=== PATIENT | female | born 1975 | race Caucasian/White ===

== ENCOUNTER → 2018-02-24 14:20 | Outpatient (CLI) | payer OTHER, SELFPAY ==
--- NOTE | 2018-02-24 | DI.MG.S_ITS ---
BILATERAL DIGITAL DIAGNOSTIC MAMMOGRAM 3D/2D: 02/24/2018 CLINICAL: Baseline exam. Left breast nodule and discomfort. No prior exams were available for comparison. The tissue of both breasts is heterogeneously dense. This may lower the sensitivity of mammography. No significant masses, calcifications, or other findings are seen in either breast. IMPRESSION: INCOMPLETE: NEEDS ADDITIONAL IMAGING EVALUATION There is no mammographic abnormality seen in the left breast to correspond with the palpable abnormality and pain, however, ultrasound is recommended. This exam was interpreted at Station ID: [id number]. NOTE: For mammograms, a report in lay terms will be sent to the patient. Approximately 15% of breast malignancies will not be visualized mammographically. In the management of a palpable breast mass, a negative mammogram must not discourage biopsy of a clinically suspicious lesion. Electronically Signed By: Sabra baca/guillermo:02/25/2018 12:07:46 Entry: martha - 02/25/2018 12:07:46 copy to: LEVI ALEJANDRO letter sent: Need Ultrasound ACR BI-RADS Category 0: Incomplete [id number]
== END ==
PROVIDERS: Visit Provider Nurse Practitioner Family
DX: R92.8 Other abnormal and inconclusive findings on diagnostic imaging of breast (principal); N64.4 Mastodynia; N63.20 Unspecified lump in the left breast, unspecified quadrant
CPT/HCPCS: 77066; G0279

== ENCOUNTER → 2018-03-10 10:38 | Outpatient (CLI) | payer OTHER, SELFPAY ==
--- NOTE | 2018-03-10 | DI.US.S_ITS ---
ULTRASOUND OF LEFT BREAST: 03/10/2018 CLINICAL: Palpable left breast lump by physician. Occasional left breast pain. Comparison is made to exam dated: 02/24/2018 [facility]. Real-time and Doppler ultrasound of the left breast were performed. [place] scale images of the real-time examination were reviewed. Targeted ultrasound was performed in the region of the patient's reported focal pain and palpable abnormality in the outer left breast. No underlying breast mass or abnormality is identified. IMPRESSION: NEGATIVE 1) Negative ultrasound evaluation of the area of the patient's reported focal pain and palpable abnormality in the left breast. Recommend clinical follow-up for further evaluation and management of the patient's reported symptoms. The patient is advised to monitor her breasts and to return for re-evaluation should anything grow or change. 2) There is no sonographic evidence of malignancy. Return to annual screening mammography is also recommended, next due in February 2019. This exam was interpreted at Station ID: [id number]. Electronically Signed By: Alfredo Honeycutt M.D. ecl/:03/10/2018 11:39:51 copy to: LEVI ALEJANDRO letter sent: Clinical Evaluation Ultrasound BI-RADS: 1 Negative
== END ==
PROVIDERS: PCP Family Medicine; Visit Provider Nurse Practitioner Family
DX: R92.8 Other abnormal and inconclusive findings on diagnostic imaging of breast (principal); N63.20 Unspecified lump in the left breast, unspecified quadrant
CPT/HCPCS: 76642

== ENCOUNTER 2019-04-30 14:44 | Emergency (ER) | payer OTHER, SELFPAY ==
[2019-04-30 14:58] VITALS: BP 136/88; PULSE 65; RESP 16; TEMP 36.7; O2SAT 100; BMI 21.9
[2019-04-30 15:12] LABS: Bacteria Urine None Seen
[2019-04-30 15:13] LABS: Appearance Urine UA CLEAR; Bilirubin Urine UA NEGATIVE (NEGATIVE); Color Urine UA YELLOW; Glucose Urine UA NEGATIVE (Negative); Ketones Urine UA NEGATIVE (NEGATIVE); Leukocyte Esterase Urine UA NEGATIVE (NEGATIVE); Nitrite Urine UA NEGATIVE (Negative); Occult Blood Urine UA 2+ (Negative); Protein Urine UA NEGATIVE (Negative); Specific Gravity Urine UA <=1.005 (1.000-1.035); Urobilinogen Urine UA 0.2 E.U./dL (0.2)
[2019-04-30 15:18] LABS: Pregnancy Test Urine Negative (Negative); pH Urine UA 6.5 (4.5-8.0)
[2019-04-30 15:27] LABS: RBC Urine 0-1/HPF (0-5/HPF); Squamous Epithelial Cell Urine 0-1 /HPF (0-5/HPF); WBC Urine 0-1/HPF (0-5/HPF)
[2019-04-30 15:28] LABS: Culture Indicated Urine Cult Not Indicated
[2019-04-30 16:15] LABS: Add Manual Diff / Slide Review NO; Basophils Absolute Auto 0 /uL (0-100); Basophils Percent Auto 0.6 % (0-2); Eosinophils Absolute Auto 0 /uL (0-450); Eosinophils Percent Auto 0.6 % (2-4); Hemoglobin 12.4 g/dL (12.0-16.0); Lymphocytes Absolute Auto 1500 /uL (1100-4500); Lymphocytes Percent Auto 26.2 % (25-40); Mean Corpuscular HGB Conc 33.5 % (30-36); Mean Corpuscular Hemoglobin 30.8 PG (26-34); Mean Corpuscular Volume 91.9 fL (80-100); Monocytes Absolute Auto 500 /uL (0-900); Monocytes Percent Auto 8.2 % (3-14); Neutrophils Absolute Auto 3800 /uL (1500-7000); Neutrophils Percent Auto 64.4 % (50-75); Platelet Count 235 X10^3/uL (150-400); Red Blood Cell Count 4.03 X10^6/uL (4.0-5.2); Red Cell Distribution Width 13.2 % (11.6-14.8); White Blood Cell Count 5.9 X10^3/uL (4.5-11.0)
--- NOTE | 2019-04-30 16:19 | DI.US.S_ITS ---
PROCEDURE: US PELVIC COMPLETE INDICATIONS: RIGHT LOWER QUADRANT PAIN TECHNIQUE: Real-time scanning was performed of the pelvic organs, with image documentation. Additional endovaginal scanning was necessary due to incomplete visualization of the adnexal and endometrial structures by transabdominal scanning. COMPARISON: None. FINDINGS: Transabdominal scanning: Limited scanning through the kidneys shows no hydronephrosis. There is a 1.2 x 1.0 x 1.0 cm mildly lobulated cystic structure of the left kidney with a single thick septation and layering calcium. No pathologic free abdominal or pelvic fluid. Endovaginal scanning: Uterus: Uterus is normal in size at the 12.0 x 7.8 x 5.9 cm. The endometrium measures 12 mm in combined thickness. Ovaries: Right ovary measures 3.2 x 1.7 x 1.7 cm. There is a 1.9 x 1.8 x 1.3 cm anechoic simple right ovarian cyst. Left ovary is not visualized due to overlying bowel gas. IMPRESSION: 1.9 cm simple cyst of the right ovary. 1.2 cm complicated cyst of the left kidney. Consider nonurgent MRI of the kidneys to confirm benignity. Left ovary not visualized. Dictated by: Sarthak Gresham M.D. on 04/30/2019 at 16:21 Approved by: Sarthak Gresham M.D. on 04/30/2019 at 16:28
[2019-04-30 16:32] LABS: Alanine Aminotransferase 17 IU/L (9-52); Albumin 4.9 g/dL (3.5-5.0); Albumin Globulin Ratio 1.6 (1.0-2.8); Alkaline Phosphatase 52 U/L (38-126); Aspartate Aminotransferase 29 IU/L (14-36); Bilirubin Total 1.6 mg/dL (0.2-1.3); Blood Urea Nitrogen 11 mg/dL (7-17); Calcium 9.5 mg/dL (8.4-10.2); Carbon Dioxide 28 mmol/L (22-32); Chloride 101 mmol/L (98-107); Estimated Glomerular Filt Rate > 60.0 mL/min (>60); Glucose 90 mg/dL (70-100); HEMOLYSIS < 15 (0-50); Lipase 76 U/L (23-300); Potassium 4.1 mmol/L (3.4-5.1); Sodium 139 mmol/L (137-145); Total Protein 7.9 g/dL (6.3-8.2)
[2019-04-30 17:37] VITALS: BP 132/74; PULSE 65; RESP 16; O2SAT 100
--- NOTE | 2019-04-30 18:44 | ED.ABDPAIN ---
HPI - Abdominal Pain [facility] Last Filed: 04/30/19 18:52> General Chief Complaint: Abdominal Pain Stated Complaint: possible an ovary cyst bursted right side Time Seen by Provider: 04/30/19 16:01 Source: patient Mode of arrival: Ambulatory Limitations: no limitations History of Present Illness HPI narrative: The patient is a 43-year-old female nonsmoker with history of ovarian cyst who presents with a chief complaint of right lower quadrant pain that has been increasing and constant for the past few days. She states she is mid cycle and has history of an ovarian cyst, she is concerned about a possible other ovarian cyst. She took Motrin this morning. She denies any fevers nausea vomiting diarrhea. She denies any dysuria urgency or frequency. She denies any vaginal discharge. She denies any concern or risk for sexually transmitted infections. She denies possibility of at this point time. Related Data Previous Rx's Medication Instructions Recorded oseltamivir [Tamiflu] 75 mg PO BID #10 cap 09/17/16 valacyclovir [Valtrex] 0 PO BID #12 tab 11/16/16 Review of Systems <[facility] Last Filed: 04/30/19 18:52> Review of Systems Narrative: GENERAL: Denies chills, fatigue, malaise, fever, sweats. HEENT: Denies sinus pain, ear pain, sore throat, difficulty swallowing, dizziness. RESPIRATORY: Denies dyspnea, cough, wheezing, hemoptysis, sputum. CARDIOVASCULAR: Denies chest pain, palpitations, orthopnea, edema, GASTROINTESTINAL see HPI : Denies dysuria, frequency, incontinence, hematuria, urinary retention. MUSCULOSKELETAL: denies weakness, joint pain, or bony pain SKIN: Denies rash, skin lesions, or other NEUROLOGIC: Denies weakness, headache, numbness, change in speech, confusion, seizures, incoordination. PSYCHIATRIC: No concerning psychosocial issues. 12 point review of systems is negative except for those stated above Exam <ASHLEY Wisdom - Last Filed: 04/30/19 18:52> Narrative Exam Narrative: GENERAL: This is a well-nourished, well-developed patient, in no acute distress HEAD: Atraumatic. Normocephalic. No temporal or scalp tenderness. EYES: Pupils equal round and reactive. Extraocular motions intact. No scleral icterus. No injection or drainage. ENT: Nose without bleeding, purulent drainage or septal hematoma. Throat without erythema, tonsillar hypertrophy or exudate. Uvula midline. Airway patent. NECK: Trachea midline. No JVD or lymphadenopathy. Supple, nontender, no meningeal signs. CARDIOVASCULAR: Regular rate and rhythm RESPIRATORY: Clear to auscultation. Breath sounds equal bilaterally. No wheezes, rales, or rhonchi. No cough. No increased respiratory effort. No accessory muscle use. GASTROINTESTINAL: Abdomen soft, nondistended. No hepato-splenomegaly, or palpable masses. No guarding. Active bowel sounds all 4 quadrants. Diffuse tenderness right lower quadrant EXTREMITIES: No clubbing, cyanosis, or edema. No joint tenderness, effusion, or edema noted. BACK: Nontender without deformity or crepitance. No flank tenderness. NEURO: AOx3. SKIN: No rash or erythema. Psych: Patient denies suicidal homicidal ideations. Does states that she drinks 2-3 glasses of wine per night. States she is safe at home and has no thoughts of hurting herself or anybody else, but will seek help if necessary. Initial Vital Signs Initial Vital Signs: Vital Signs Temperature 98.1 F 04/30/19 14:58 Pulse Rate 65 04/30/19 14:58 Respiratory Rate 16 04/30/19 14:58 Blood Pressure 136/88 04/30/19 14:58 Pulse Oximetry 100 04/30/19 14:58 <Emilie Cerrato MD - Last Filed: 04/30/19 19:25> Initial Vital Signs Initial Vital Signs: Vital Signs Temperature 98.1 F 04/30/19 14:58 Pulse Rate 65 04/30/19 14:58 Respiratory Rate 16 04/30/19 14:58 Blood Pressure 136/88 04/30/19 14:58 Pulse Oximetry 100 04/30/19 14:58 Course <BRENTON Wisdom - Last Filed: 04/30/19 18:52> Orders Ordered: ED Orders 04/30/19 15:05 Test Urine Stat Urinalysis and Microscopic Stat 04/30/19 16:08 Complete Blood Count AUTO DIFF Stat Comprehensive Metabolic Panel Stat Lipase Stat Prothrombin Time INR Stat 04/30/19 16:19 US pelvic complete Stat Vital Signs Vital signs: Vital Signs - 8 hr 10/20/19 14:58 04/30/19 17:37 Temperature 98.1 F Pulse Rate 65 65 Respiratory Rate 16 16 Blood Pressure 136/88 Blood Pressure [Right Arm] 132/74 Pulse Oximetry 100 100 <Emilie Cerrato MD - Last Filed: 04/30/19 19:25> Orders Ordered: ED Orders 04/30/19 15:05 Test Urine Stat Urinalysis and Microscopic Stat 04/30/19 16:08 Complete Blood Count AUTO DIFF Stat Comprehensive Metabolic Panel Stat Lipase Stat Prothrombin Time INR Stat 04/30/19 16:19 US pelvic complete Stat Vital Signs Vital signs: Vital Signs - 8 hr 04/30/19 14:58 04/30/19 17:37 Temperature 98.1 F Pulse Rate 65 65 Respiratory Rate 16 16 Blood Pressure 136/88 Blood Pressure [Right Arm] 132/74 Pulse Oximetry 100 100 MDM - Abdominal Pain <ASHLEY Wisdom - Last Filed: 04/30/19 18:52> Lab Data Result diagrams: 04/30/19 16:08 04/30/19 16:08 Labs: Lab Results 04/30/19 04/30/19 04/30/19 Range/Units 15:05 15:05 16:08 WBC 5.9 (4.5-11.0) X10^3/uL RBC 4.03 (4.0-5.2) X10^6/uL Hgb 12.4 (12.0-16.0) g/dL Hct 37.0 (36-46) % MCV 91.9 (80-100) fL MCH 30.8 (26-34) PG MCHC 33.5 (30-36) % RDW 13.2 (11.6-14.8) % Plt Count 235 (150-400) X10^3/uL Neut % (Auto) 64.4 (50-75) % Lymph % (Auto) 26.2 (25-40) % [place] % (Auto) 8.2 (3-14) % Eos % (Auto) 0.6 L (2-4) % Baso % (Auto) 0.6 (0-2) % Neut # (Auto) 3800 (7730-6915) /uL Lymph # (Auto) 1500 (4201-9742) /uL [place] # (Auto) 500 (0-900) /uL Eos # (Auto) 0 (0-450) /uL Baso # (Auto) 0 (0-100) /uL PT (10.1-12.7) SECONDS INR (0.9-1.3) Sodium (137-145) mmol/L Potassium (3.4-5.1) mmol/L Chloride (98-107) mmol/L Carbon Dioxide (22-32) mmol/L BUN (7-17) mg/dL Creatinine (0.52-1.04) mg/dL Estimated GFR (>60) mL/min BUN/Creatinine Ratio (6-22) Glucose (70-100) mg/dL Calcium (8.4-10.2) mg/dL Total Bilirubin (0.2-1.3) mg/dL AST (14-36) IU/L ALT (9-52) IU/L Alkaline Phosphatase (38-126) U/L Total Protein (6.3-8.2) g/dL Albumin (3.5-5.0) g/dL Globulin (1.7-4.1) g/dL Albumin/Globulin Ratio (1.0-2.8) Lipase (23-300) U/L Urine Color Yellow Urine Appearance Clear Urine pH 6.5 (4.5-8.0) Ur Specific [place] <=1.005 (1.000-1.035) Urine Protein Negative (Negative) Urine Glucose (UA) Negative (Negative) g/dL Urine Ketones Negative (NEGATIVE) Urine Occult Blood 2+ H (Negative) Urine Nitrate Negative (Negative) Urine Bilirubin Negative (NEGATIVE) Urine Urobilinogen 0.2 (0.2) E.U./dL Ur Leukocyte Esterase Negative (NEGATIVE) Urine RBC 0-1/hpf (0-5/HPF) Urine WBC 0-1/hpf (0-5/HPF) Ur Squamous Epith Cells 0-1 /hpf (0-5/HPF) Urine Bacteria None seen (None) Ur Culture Indicated? Cult not indicated Urine Test Negative (Negative) 04/30/19 04/30/19 Range/Units 16:08 16:08 WBC (4.5-11.0) X10^3/uL RBC (4.0-5.2) X10^6/uL Hgb (12.0-16.0) g/dL Hct (36-46) % MCV (80-100) fL MCH (26-34) PG MCHC (30-36) % RDW (11.6-14.8) % Plt Count (150-400) X10^3/uL Neut % (Auto) (50-75) % Lymph % (Auto) (25-40) % [place] % (Auto) (3-14) % Eos % (Auto) (2-4) % Baso % (Auto) (0-2) % Neut # (Auto) (1068-4704) /uL Lymph # (Auto) (8290-0902) /uL [place] # (Auto) (0-900) /uL Eos # (Auto) (0-450) /uL Baso # (Auto) (0-100) /uL PT 12.0 (10.1-12.7) SECONDS INR 1.0 (0.9-1.3) Sodium 139 (137-145) mmol/L Potassium 4.1 (3.4-5.1) mmol/L Chloride 101 (98-107) mmol/L Carbon Dioxide 28 (22-32) mmol/L BUN 11 (7-17) mg/dL Creatinine 0.50 L (0.52-1.04) mg/dL Estimated GFR > 60.0 (>60) mL/min BUN/Creatinine Ratio 22.0 (6-22) Glucose 90 (70-100) mg/dL Calcium 9.5 (8.4-10.2) mg/dL Total Bilirubin 1.6 H (0.2-1.3) mg/dL AST 29 (14-36) IU/L ALT 17 (9-52) IU/L Alkaline Phosphatase 52 (38-126) U/L Total Protein 7.9 (6.3-8.2) g/dL Albumin 4.9 (3.5-5.0) g/dL Globulin 3.0 (1.7-4.1) g/dL Albumin/Globulin Ratio 1.6 (1.0-2.8) Lipase 76 (23-300) U/L Urine Color Urine Appearance Urine pH (4.5-8.0) Ur Specific [place] (1.000-1.035) Urine Protein (Negative) Urine Glucose (UA) (Negative) g/dL Urine Ketones (NEGATIVE) Urine Occult Blood (Negative) Urine Nitrate (Negative) Urine Bilirubin (NEGATIVE) Urine Urobilinogen (0.2) E.U./dL Ur Leukocyte Esterase (NEGATIVE) Urine RBC (0-5/HPF) Urine WBC (0-5/HPF) Ur Squamous Epith Cells (0-5/HPF) Urine Bacteria (None) Ur Culture Indicated? Urine Test (Negative) Imaging Data Pelvic ultrasound: Radiologist's impression: [address] [id number] Ultrasound Report Signed Patient: Anali Baires#: [id number] : 1975Acct:[id number] Age/Sex: 43 / FDate of Service: 04/30/19 Loc: ED Accession Number: [id number] Procedure: US pelvic complete Ordering Provider: Karina Velasquez [employer] PROCEDURE: US PELVIC COMPLETE INDICATIONS: RIGHT LOWER QUADRANT PAIN TECHNIQUE: Real-time scanning was performed of the pelvic organs, with image documentation. Additional endovaginal scanning was necessary due to incomplete visualization of the adnexal and endometrial structures by transabdominal scanning. COMPARISON: None. FINDINGS: Transabdominal scanning: Limited scanning through the kidneys shows no hydronephrosis. There is a 1.2 x 1.0 x 1.0 cm mildly lobulated cystic structure of the left kidney with a single thick septation and layering calcium. No pathologic free abdominal or pelvic fluid. Endovaginal scanning: Uterus: Uterus is normal in size at the 12.0 x 7.8 x 5.9 cm. The endometrium measures 12 mm in combined thickness. Ovaries: Right ovary measures 3.2 x 1.7 x 1.7 cm. There is a 1.9 x 1.8 x 1.3 cm anechoic simple right ovarian cyst. Left ovary is not visualized due to overlying bowel gas. IMPRESSION: 1.9 cm simple cyst of the right ovary. 1.2 cm complicated cyst of the left kidney. Consider nonurgent MRI of the kidneys to confirm benignity. Left ovary not visualized. Dictated by: Sarthak Gresham M.D. on 04/30/2019 at 16:21 Approved by: Sarthak Gresham M.D. on 04/30/2019 at 16:28 [facility] Narrative Medical decision making narrative: The patient is a 43-year-old female who presents with a chief complaint of right lower quadrant pain with history of ovarian cyst. She does not have an acute abdomen on exam. Urinalysis was taken to evaluate for UTI, and laboratory evaluation showed no leukocytosis or is red blood cells or white blood cells. Her lab work came back grossly benign, with no leukocytosis. An ultrasound was taken, evaluating for possible ovarian cyst. This came back 01.9 cm ovarian cyst on her right side, which correlates with her pain. Of note the patient was also found to have a 1.2 cm complex cyst of her left kidney. I discussed at length the importance of following up regarding this as she might need further evaluation. Discussed at length coming back to the emergency department for any acute concerns such as sudden severe pain, inability keep down fluids etc. I encouraged PCP follow-up regarding both her ovarian cyst and complex kidney cyst. Encourage conservative measures such as warm packs [id number] medications as needed and able for right lower quadrant pain. She does not have an acute abdomen, no leukocytosis, no systemic symptoms so I did not get a CT of her abdomen at this point time. Discussed coming back to emergency department for any acute concerns. Patient has no questions or concerns upon discharge, states understanding of return precautions as well as follow-up care. <Emilie Cerrato MD - Last Filed: 04/30/19 19:25> Lab Data Labs: Lab Results 04/30/19 04/30/19 04/30/19 Range/Units 15:05 15:05 16:08 WBC 5.9 (4.5-11.0) X10^3/uL RBC 4.03 (4.0-5.2) X10^6/uL Hgb 12.4 (12.0-16.0) g/dL Hct 37.0 (36-46) % MCV 91.9 (80-100) fL MCH 30.8 (26-34) PG MCHC 33.5 (30-36) % RDW 13.2 (11.6-14.8) % Plt Count 235 (150-400) X10^3/uL Neut % (Auto) 64.4 (50-75) % Lymph % (Auto) 26.2 (25-40) % [place] % (Auto) 8.2 (3-14) % Eos % (Auto) 0.6 L (2-4) % Baso % (Auto) 0.6 (0-2) % Neut # (Auto) 3800 (9642-5796) /uL Lymph # (Auto) 1500 (7663-8392) /uL [place] # (Auto) 500 (0-900) /uL Eos # (Auto) 0 (0-450) /uL Baso # (Auto) 0 (0-100) /uL PT (10.1-12.7) SECONDS INR (0.9-1.3) Sodium (137-145) mmol/L Potassium (3.4-5.1) mmol/L Chloride (98-107) mmol/L Carbon Dioxide (22-32) mmol/L BUN (7-17) mg/dL Creatinine (0.52-1.04) mg/dL Estimated GFR (>60) mL/min BUN/Creatinine Ratio (6-22) Glucose (70-100) mg/dL Calcium (8.4-10.2) mg/dL Total Bilirubin (0.2-1.3) mg/dL AST (14-36) IU/L ALT (9-52) IU/L Alkaline Phosphatase (38-126) U/L Total Protein (6.3-8.2) g/dL Albumin (3.5-5.0) g/dL Globulin (1.7-4.1) g/dL Albumin/Globulin Ratio (1.0-2.8) Lipase (23-300) U/L Urine Color Yellow Urine Appearance Clear Urine pH 6.5 (4.5-8.0) Ur Specific [place] <=1.005 (1.000-1.035) Urine Protein Negative (Negative) Urine Glucose (UA) Negative (Negative) g/dL Urine Ketones Negative (NEGATIVE) Urine Occult Blood 2+ H (Negative) Urine Nitrate Negative (Negative) Urine Bilirubin Negative (NEGATIVE) Urine Urobilinogen 0.2 (0.2) E.U./dL Ur Leukocyte Esterase Negative (NEGATIVE) Urine RBC 0-1/hpf (0-5/HPF) Urine WBC 0-1/hpf (0-5/HPF) Ur Squamous Epith Cells 0-1 /hpf (0-5/HPF) Urine Bacteria None seen (None) Ur Culture Indicated? Cult not indicated Urine Test Negative (Negative) 10/20/19 10/20/19 Range/Units 16:08 16:08 WBC (4.5-11.0) X10^3/uL RBC (4.0-5.2) X10^6/uL Hgb (12.0-16.0) g/dL Hct (36-46) % MCV (80-100) fL MCH (26-34) PG MCHC (30-36) % RDW (11.6-14.8) % Plt Count (150-400) X10^3/uL Neut % (Auto) (50-75) % Lymph % (Auto) (25-40) % [place] % (Auto) (3-14) % Eos % (Auto) (2-4) % Baso % (Auto) (0-2) % Neut # (Auto) (1238-9314) /uL Lymph # (Auto) (1427-5813) /uL [place] # (Auto) (0-900) /uL Eos # (Auto) (0-450) /uL Baso # (Auto) (0-100) /uL PT 12.0 (10.1-12.7) SECONDS INR 1.0 (0.9-1.3) Sodium 139 (137-145) mmol/L Potassium 4.1 (3.4-5.1) mmol/L Chloride 101 (98-107) mmol/L Carbon Dioxide 28 (22-32) mmol/L BUN 11 (7-17) mg/dL Creatinine 0.50 L (0.52-1.04) mg/dL Estimated GFR > 60.0 (>60) mL/min BUN/Creatinine Ratio 22.0 (6-22) Glucose 90 (70-100) mg/dL Calcium 9.5 (8.4-10.2) mg/dL Total Bilirubin 1.6 H (0.2-1.3) mg/dL AST 29 (14-36) IU/L ALT 17 (9-52) IU/L Alkaline Phosphatase 52 (38-126) U/L Total Protein 7.9 (6.3-8.2) g/dL Albumin 4.9 (3.5-5.0) g/dL Globulin 3.0 (1.7-4.1) g/dL Albumin/Globulin Ratio 1.6 (1.0-2.8) Lipase 76 (23-300) U/L Urine Color Urine Appearance Urine pH (4.5-8.0) Ur Specific [place] (1.000-1.035) Urine Protein (Negative) Urine Glucose (UA) (Negative) g/dL Urine Ketones (NEGATIVE) Urine Occult Blood (Negative) Urine Nitrate (Negative) Urine Bilirubin (NEGATIVE) Urine Urobilinogen (0.2) E.U./dL Ur Leukocyte Esterase (NEGATIVE) Urine RBC (0-5/HPF) Urine WBC (0-5/HPF) Ur Squamous Epith Cells (0-5/HPF) Urine Bacteria (None) Ur Culture Indicated? Urine Test (Negative) Discharge Plan Departure Patient Disposition: Home Clinical Impression: Left kidney mass Abdominal pain Qualifiers: Abdominal location: right lower quadrant Qualified Code(s): R10.31 - Right lower quadrant pain Ovarian cyst Qualifiers: Laterality: right Qualified Code(s): N83.201 - Unspecified ovarian cyst, right side Discharge Date/Time: 04/30/19 18:51 Instructions: DI for Ovarian Cyst, DI for Abdominal Pain-Adult Activity Restrictions/Additional Instructions: As discussed, your imaging shows an 1.9 cm ovarian cyst on your right side as well as a complex cyst 1.2 cm of your left kidney. Please use conservative measures for pain such as Tylenol, Motrin, heat packs. Please follow up with primary care provider regarding her imaging. As discussed further imaging and evaluation will need to be completed regarding your complex kidney cyst. Please monitor for fevers, inability keep down fluids or any acute concerns. Please come back to the emergency department for any acute concerns. Prescriptions: No Action oseltamivir [Tamiflu] 75 MG capsule 75 mg PO BID Qty: 10 RF: 0 valacyclovir [Valtrex] 1,000 MG tablet 0 PO BID Qty: 12 RF: 1 Referrals: Leonel James MD [Primary Care Provider] -
== END 2019-04-30 18:51 | disposition home or self-care (01) ==
PROVIDERS: Emergency Medicine; Emergency Provider Nurse Practitioner Family; PCP Family Medicine
DX: N28.89 Other specified disorders of kidney and ureter (principal); R10.31 Right lower quadrant pain; N83.201 Unspecified ovarian cyst, right side
CPT/HCPCS: 36415; 76830; 76856; 80053; 81001; 81025; 83690; 85025; 85610; 99282; 99284

== ENCOUNTER → 2019-05-09 13:51 | Outpatient (CLI) | payer OTHER, SELFPAY ==
--- NOTE | 2019-05-09 | DI.MRI.S_ITS ---
PROCEDURE: MR ABDOMEN WO/W CON INDICATIONS: Left kidney cyst TECHNIQUE: Coronal HASTE, axial 2D FLASH in- and [id number]; axial breath-hold T2 FSE. Dynamic axial VIBE during the administration of contrast; post-contrast coronal VIBE or 2D FLASH with fat saturation from the hepatic dome to the iliac crests. Optional diffusion weighted imaging and ADC may be performed. COMPARISON: [facility], US, US PELVIC COMPLETE, 04/30/2019, 16:41. FINDINGS: Image quality: Excellent. Lung bases: No basal pleural effusions. Heart size is normal. Solid organs: Liver is normal in size and enhancement. Gallbladder is within normal limits. Biliary system is non dilated. Pancreas is normal in morphology. Spleen is normal in size and enhancement. No adrenal nodules. Both kidneys demonstrate normal size. No hydronephrosis. Bilateral renal cysts are present. The 12 mm cyst within the left interpolar kidney demonstrates no evidence of enhancement. Nodes and vessels: No retroperitoneal or mesenteric adenopathy by size criteria. Aorta and inferior vena cava are normal in size. Bowel and peritoneum: Unenhanced bowel loops are normal in caliber. No free fluid. Bones and soft tissues: No ventral hernias. Bone marrow is normal in overall signal. IMPRESSION: 1. No evidence of enhancement within the bilateral renal cysts, including the complex left renal cyst seen by ultrasound. No evidence of malignancy. Followup ultrasound examination in 1 year is recommended to confirm stability, and to exclude the less likely possibility of underlying cystic neoplasm. Dictated by: Lexie Rizo M.D. on 05/09/2019 at 16:51 Approved by: Lexie Rizo M.D. on 05/09/2019 at 16:54
== END ==
PROVIDERS: PCP Family Medicine; Visit Provider Family Medicine
DX: N28.1 Cyst of kidney, acquired (principal)
CPT/HCPCS: 74183; A9579

== ENCOUNTER → 2021-08-22 10:40 | Outpatient (CLI) | payer OTHER, SELFPAY ==
--- NOTE | 2021-08-22 | DI.US.S_ITS ---
PROCEDURE: US PELVIC COMPLETE INDICATIONS: RIGHT ADRENAL MASS TECHNIQUE: Real-time scanning was performed of the pelvic organs, with image documentation. Additional endovaginal scanning was necessary due to incomplete visualization of the adnexal and endometrial structures by transabdominal scanning. COMPARISON: [facility], , US PELVIC COMPLETE, 04/30/2019, 16:41. FINDINGS: Uterus: Uterus is anteverted and enlarged in size at 13.5 x 6.8 x 7.3 cm. The myometrium is slightly heterogeneous. The endometrium measures 13.4 mm combined thickness. No uterine fibroids. Ovaries: Right ovary measures 2.5 x 1.3 x 1.8 cm and there is a dominant 2.2 cm follicular cyst. Normal left ovary at 3.9 x 2.1 x 2.7 cm. Other: No pathologic free abdominal or pelvic fluid. IMPRESSION: 1. Prominent size of the uterus measuring up to 13.5 cm in length. 2. Dominant 2.2 cm right follicular cyst. We strive to produce accurate, complete, and clear reports of imaging services. To assist us in improving patient care, this report was composed using standard report templates and voice recognition software. Therefore, it may contain abnormal punctuation, insertions and/or omissions. Occasional wrong-word or sound-alike substitutions may occur. Though we review the report and make efforts to correct it, we do recommend that the report be read carefully in proper context to recognize any text inaccuracies. Dictated by: Paul LITTLEJOHN Interpreted: Dagoebrto Fiore MD on 08/22/2021 at 14:47 Approved by: Dagoberto Fiore M.D. on 08/22/2021 at 16:49
== END ==
PROVIDERS: Referring Provider Nurse Practitioner; Visit Provider Nurse Practitioner
DX: E27.9 Disorder of adrenal gland, unspecified (principal); N85.2 Hypertrophy of uterus; N83.01 Follicular cyst of right ovary
CPT/HCPCS: 76830; 76856

== ENCOUNTER → 2024-03-08 17:06 | Outpatient (CLI) | payer BC, SELFPAY | PROVIDERS: Visit Provider Nurse Practitioner Family | DX: R30.0 Dysuria (principal); R10.9 Unspecified abdominal pain | CPT/HCPCS: 87086; 87210 ==

== ENCOUNTER → 2025-01-04 10:33 | Outpatient (CLI) | payer BC, SELFPAY ==
[2025-01-04 12:10] LABS: Add Manual Diff / Slide Review NO; Basophils Absolute Auto 0 /uL (0-100); Basophils Percent Auto 0.7 % (0-2); Eosinophils Absolute Auto 0 /uL (0-450); Eosinophils Percent Auto 0.8 % (2-4); Hematocrit 28.9 % (36-46); Hemoglobin 9.3 g/dL (12.0-16.0); Lymphocytes Absolute Auto 1700 /uL (1100-4500); Mean Corpuscular HGB Conc 32.3 % (30-36); Mean Corpuscular Hemoglobin 23.4 PG (26-34); Mean Corpuscular Volume 72.6 fL (80-100); Monocytes Absolute Auto 400 /uL (0-900); Monocytes Percent Auto 8.5 % (3-14); Neutrophils Absolute Auto 2900 /uL (1500-7000); Platelet Count 280 X10^3/uL (150-400); Red Blood Cell Count 3.98 X10^6/uL (4.0-5.2); Red Cell Distribution Width 18.3 % (11.6-14.8); White Blood Cell Count 5.1 X10^3/uL (4.5-11.0)
[2025-01-04 12:27] LABS: Hemoglobin A1C% w Est Avg Glu 5.4 % (4.0-6.0)
[2025-01-04 12:31] LABS: Alanine Aminotransferase 15 IU/L (<35); Albumin 4.8 g/dL (3.5-5.0); Albumin Globulin Ratio 1.7 (1.0-2.8); Alkaline Phosphatase 37 U/L (38-126); Aspartate Aminotransferase 25 IU/L (14-36); Bilirubin Total 1.4 mg/dL (0.2-1.3); Blood Urea Nitrogen 11 mg/dL (7-17); Calcium 9.1 mg/dL (8.4-10.2); Carbon Dioxide 26 mmol/L (22-32); Chloride 102 mmol/L (98-107); Estimated Glomerular Filt Rate > 60 mL/min (>60); Globulin 2.9 g/dL (1.7-4.1); Glucose 78 mg/dL (70-99); HEMOLYSIS < 15 (0-50); Potassium 4.6 mmol/L (3.4-5.1); Sodium 138 mmol/L (137-145); Total Protein 7.7 g/dL (6.3-8.2)
[2025-01-04 13:21] LABS: Vitamin B12 635 pg/mL (239-931)
== END ==
PROVIDERS: PCP Student in an Organized Health Care Education/Training Program; Referring Provider Family Medicine; Visit Provider Family Medicine
DX: R20.0 Anesthesia of skin (principal); R20.2 Paresthesia of skin
CPT/HCPCS: 36415; 80053; 82607; 83036; 85025

== ENCOUNTER → 2025-01-09 10:42 | Outpatient (CLI) | payer BC, SELFPAY ==
[2025-01-09 15:42] LABS: HEMOLYSIS < 15 (0-50); Iron 30 ug/dL (37-170)
[2025-01-09 15:53] LABS: Percent Iron Saturation 6 % (15-50); Total Iron Binding Capacity 482 ug/dL (265-497); Transferrin 410 mg/dL (206-381)
[2025-01-09 16:13] LABS: TSH w/ Reflex to FT4 1.13 uIU/mL (0.47-4.68)
[2025-01-09 16:17] LABS: Ferritin 6 ng/mL (11-264)
== END ==
PROVIDERS: Family Medicine; PCP Student in an Organized Health Care Education/Training Program; Referring Provider Student in an Organized Health Care Education/Training Program; Visit Provider Student in an Organized Health Care Education/Training Program
DX: R20.0 Anesthesia of skin (principal); R20.2 Paresthesia of skin; D64.9 Anemia, unspecified
CPT/HCPCS: 36415; 82728; 83540; 83550; 84443

== ENCOUNTER 2025-01-10 12:56 | Emergency (ER) | payer BC, SELFPAY ==
[2025-01-10] VITALS (8 sets, daily range): BP systolic 133–144; BP diastolic 60–65; PULSE 68–78; RESP 14–16; TEMP 36.9; O2SAT 98–100; BMI 23.8
[2025-01-10 13:37] LABS: Add Manual Diff / Slide Review NO; Hematocrit 28.0 % (36-46); Hemoglobin 8.9 g/dL (12.0-16.0); Lymphocytes Absolute Auto 1200 /uL (1100-4500); Mean Corpuscular HGB Conc 31.9 % (30-36); Mean Corpuscular Hemoglobin 23.1 PG (26-34); Mean Corpuscular Volume 72.5 fL (80-100); Platelet Count 278 X10^3/uL (150-400)
[2025-01-10 13:45] LABS: Alanine Aminotransferase 16 IU/L (<35); Albumin 4.6 g/dL (3.5-5.0); Albumin Globulin Ratio 1.5 (1.0-2.8); Alkaline Phosphatase 44 U/L (38-126); Blood Urea Nitrogen 9 mg/dL (7-17); Calcium 8.8 mg/dL (8.4-10.2); Carbon Dioxide 26 mmol/L (22-32); Chloride 102 mmol/L (98-107); Estimated Glomerular Filt Rate > 60 mL/min (>60); Globulin 3.1 g/dL (1.7-4.1); Glucose 123 mg/dL (70-99); HEMOLYSIS < 15 (0-50); Potassium 4.0 mmol/L (3.4-5.1); Sodium 138 mmol/L (137-145); Total Protein 7.7 g/dL (6.3-8.2)
--- NOTE | 2025-01-10 16:09 | ED.RECABL ---
HPI - Recheck/Abnormal Lab/Rx <Margy Ma PA-C - Last Filed: 01/10/25 20:02> General Chief Complaint: Recheck/Abnormal Lab/Rx Stated Complaint: pcp sent to get checked for felling off and spaces Time Seen by Provider: 01/10/25 16:09 Source: patient Mode of arrival: Ambulatory History of Present Illness HPI narrative: Ms. Baires is a pleasant 49-year-old female with a past medical history of anemia who presents to the emergency department for concerns of feeling woozy, sent by pcp office for concern of worsening anemia. Patient found out yesterday that she has iron deficiency anemia. She was informed to be on the lookout for symptoms such as lightheadedness, dizziness, shortness of breath, etc. She was supposed to see her primary care doctor today at 2:30 p.m. but she messaged the office and told him that she was feeling woozy so they canceled her appointment and advised that she come to the ER for further management. States that she felt well when she woke up this morning however as she went on about her day she started feeling more fatigued and woozy. She denies feeling lightheaded, dizzy, short of breath. No black or bloody stools, hematuria, nausea vomiting or abdominal pain. She is currently on her menstrual cycle however states that it has been extremely life for the past 2 days. Lately however she is noticed her menstrual cycles are getting more irregular and are occasionally heavy and frequent. No blood thinner use. Related Data Previous Rx's ?Medication ?Instructions ?Recorded acyclovir 400 mg tablet 400 mg PO TID #10 tabs 11/13/24 ferrous sulfate 325 mg (65 mg 325 mg PO DAILY #90 tabs 01/10/25 iron) tablet Allergies Allergy/AdvReac Type Severity Reaction Status Date / Time No Known Drug Allergies Allergy Verified 01/10/25 13:16 Review of Systems <Margy Ma PA-C - Last Filed: 01/10/25 20:02> Review of Systems ROS Unobtainable: All systems reviewed & are unremarkable except as noted in HPI and below Patient History <Margy Ma PA-C - Last Filed: 01/10/25 20:02> Surgical History [place] teeth removed Smoking Status: Unknown if ever smoked Exam <Margy Ma PA-C - Last Filed: 01/10/25 20:02> Narrative Exam Narrative: GENERAL: 49 year old patient appears stated age. Well-developed patient, in no acute distress. HEAD: Atraumatic. Normocephalic. EYES: Extraocular motions intact. No scleral icterus. No injection or drainage. ENT: Nose without bleeding, purulent drainage. Throat without erythema, tonsillar hypertrophy or exudate. Airway patent. NECK: Trachea midline. Cervical ROM intact. CARDIOVASCULAR: Regular rate and rhythm. RESPIRATORY: ?Nonlabored respirations. ?Speaking in clear, full sentences. ?Clear to auscultation. Breath sounds equal bilaterally. No wheezes, rales, or rhonchi. ? GASTROINTESTINAL: Abdomen soft, non-tender, nondistended. NEURO: AOx3. ?Clear speech. ?Moves all 4 extremities appropriately. Provides a clear history. Steady gait. SKIN: No rash or erythema of visible areas. Skin is very pale. Initial Vital Signs Initial Vital Signs: Vital Signs Pulse Rate 76 01/10/25 13:09 Blood Pressure 140/65 01/10/25 13:09 Pulse Oximetry 100 01/10/25 13:09 <Karina Gómez DO - Last Filed: 01/12/25 18:43> Initial Vital Signs Initial Vital Signs: Vital Signs Pulse Rate 76 01/10/25 13:09 Blood Pressure 140/65 01/10/25 13:09 Pulse Oximetry 100 01/10/25 13:09 Course <Margy Ma PA-C - Last Filed: 01/10/25 20:02> Orders Ordered: ED Orders 01/10/25 13:20 CBC Auto Diff [Complete Blood Count AUTO DIFF] Stat CMP [Comprehensive Metabolic Panel] Stat Vital Signs Vital signs: Vital Signs - 8 hr 01/10/25 13:09 01/10/25 13:09 01/10/25 13:16 Temperature 98.4 F Pulse Rate 76 78 Respiratory Rate 14 Blood Pressure 140/65 144/65 H Pulse Oximetry 100 100 Oxygen Delivery Method Room Air 01/10/25 13:30 01/10/25 14:00 01/10/25 14:30 Temperature Pulse Rate 76 71 72 Respiratory Rate Blood Pressure Pulse Oximetry 98 98 98 Oxygen Delivery Method 01/10/25 15:00 01/10/25 15:30 01/10/25 16:41 Temperature Pulse Rate 72 68 69 Respiratory Rate 16 Blood Pressure 133/60 Pulse Oximetry 99 100 99 Oxygen Delivery Method Room Air <Karina Gómez DO - Last Filed: 01/12/25 18:43> Orders Ordered: ED Orders 01/10/25 13:20 CBC Auto Diff [Complete Blood Count AUTO DIFF] Stat CMP [Comprehensive Metabolic Panel] Stat Vital Signs Vital signs: Vital Signs - 8 hr 01/10/25 13:09 01/10/25 13:09 01/10/25 13:16 Temperature 98.4 F Pulse Rate 76 78 Respiratory Rate 14 Blood Pressure 140/65 144/65 H Pulse Oximetry 100 100 Oxygen Delivery Method Room Air 01/10/25 13:30 01/10/25 14:00 01/10/25 14:30 Temperature Pulse Rate 76 71 72 Respiratory Rate Blood Pressure Pulse Oximetry 98 98 98 Oxygen Delivery Method 01/10/25 15:00 01/10/25 15:30 01/10/25 16:41 Temperature Pulse Rate 72 68 69 Respiratory Rate 16 Blood Pressure 133/60 Pulse Oximetry 99 100 99 Oxygen Delivery Method Room Air MDM - Recheck/Abnormal Lab/Rx <Margy Ma PA-C - Last Filed: 01/10/25 20:02> Medical Records Attestation: I reviewed the patient's medical records. Lab Data 01/10/25 13:20 01/10/25 13:20 Labs: Lab Results 01/10/25 Range/Units 13:20 WBC 4.4 L (4.5-11.0) X10^3/uL RBC 3.86 L (4.0-5.2) X10^6/uL Hgb 8.9 L (12.0-16.0) g/dL Hct 28.0 L (36-46) % MCV 72.5 L (80-100) fL MCH 23.1 L (26-34) PG MCHC 31.9 (30-36) % RDW 18.3 H (11.6-14.8) % Plt Count 278 (150-400) X10^3/uL Neut % (Auto) 64.5 (50-75) % Lymph % (Auto) 26.3 (25-40) % Lucas % (Auto) 7.3 (3-14) % Eos % (Auto) 0.9 L (2-4) % Baso % (Auto) 1.0 (0-2) % Neut # (Auto) 2800 (8927-1758) /uL Lymph # (Auto) 1200 (2246-7219) /uL Lucas # (Auto) 300 (0-900) /uL Eos # (Auto) 0 (0-450) /uL Baso # (Auto) 0 (0-100) /uL Sodium 138 (137-145) mmol/L Potassium 4.0 (3.4-5.1) mmol/L Chloride 102 (98-107) mmol/L Carbon Dioxide 26 (22-32) mmol/L BUN 9 (7-17) mg/dL Creatinine 0.66 (0.52-1.04) mg/dL Estimated GFR > 60 (>60) mL/min BUN/Creatinine Ratio 13.6 (6-22) Glucose 123 H (70-99) mg/dL Calcium 8.8 (8.4-10.2) mg/dL Total Bilirubin 0.9 (0.2-1.3) mg/dL AST 26 (14-36) IU/L ALT 16 (<35) IU/L Alkaline Phosphatase 44 (38-126) U/L Total Protein 7.7 (6.3-8.2) g/dL Albumin 4.6 (3.5-5.0) g/dL Globulin 3.1 (1.7-4.1) g/dL Albumin/Globulin Ratio 1.5 (1.0-2.8) MDM Narrative Medical decision making narrative: 49-year-old female with a past medical history of anemia who presents to the emergency department for concerns of feeling woozy, sent by pcp office for concern of worsening anemia. Differential diagnosis includes but not limited to blood loss anemia, iron deficiency anemia, dehydration electrolyte abnormality, etc. Patient was initially started in the main emergency department where a CBC and CMP were obtained. She was then later moved to the fast track area of the emergency department to be seen by myself. On exam patient is in no acute distress, nontoxic appearing and all vital signs are normal. She is quite pale but otherwise appears well. She was very recently diagnosed with iron deficiency anemia however there is no comparison as prior to this most recent labs were 2019. Patient denies any symptoms of GI bleeding, she is currently on her menstrual cycle however states it is extremely light. Labs today reveal a hemoglobin of 8.9 which is down from 9.3 on 01/04/2025. Her white blood cell count is also slightly decreased at 4.4. White blood cell count 3.86. MCV and MCH both decreased as well, consistent with a microcytic anemia with an increased RDW of 18.3%. Normal CMP with good renal function, no electrolyte derangements. Labs from a few days ago do reveal a low iron of 30. Patient has not yet been able to talk with a medical provider about her iron deficiency anemia as she just learned diagnosis yesterday and her PCP appointment was canceled today as she was sent to the ER. She is very frustrated as she does wish to see her PCP in order to have iron transfusions and other treatment set up. I discussed with the patient that because she is stable at this time with no active significant bleeding, there is no indication for emergent blood transfusion however I will start her on oral iron supplementation. She was offered IV fluids however declines as she did have a difficult lab draw earlier today and does not wish for another IV which I am agreeable to, she is tolerating food and water without difficulty. Discussed starting iron supplementation until the patient can follow up with her PCP for further management. I also did recommend scheduled ibuprofen to help with menstrual bleeding. Discussed very strict ED return precautions. She verbalized understanding of all information and is agreeable with the plan, all vital signs within normal limits, ambulatory and stable for discharge home. <Karina Gómez, - Last Filed: 01/12/25 18:43> Lab Data Labs: Lab Results 01/10/25 Range/Units 13:20 WBC 4.4 L (4.5-11.0) X10^3/uL RBC 3.86 L (4.0-5.2) X10^6/uL Hgb 8.9 L (12.0-16.0) g/dL Hct 28.0 L (36-46) % MCV 72.5 L (80-100) fL MCH 23.1 L (26-34) PG MCHC 31.9 (30-36) % RDW 18.3 H (11.6-14.8) % Plt Count 278 (150-400) X10^3/uL Neut % (Auto) 64.5 (50-75) % Lymph % (Auto) 26.3 (25-40) % Lucas % (Auto) 7.3 (3-14) % Eos % (Auto) 0.9 L (2-4) % Baso % (Auto) 1.0 (0-2) % Neut # (Auto) 2800 (2251-7535) /uL Lymph # (Auto) 1200 (8468-1507) /uL Lucas # (Auto) 300 (0-900) /uL Eos # (Auto) 0 (0-450) /uL Baso # (Auto) 0 (0-100) /uL Sodium 138 (137-145) mmol/L Potassium 4.0 (3.4-5.1) mmol/L Chloride 102 (98-107) mmol/L Carbon Dioxide 26 (22-32) mmol/L BUN 9 (7-17) mg/dL Creatinine 0.66 (0.52-1.04) mg/dL Estimated GFR > 60 (>60) mL/min BUN/Creatinine Ratio 13.6 (6-22) Glucose 123 H (70-99) mg/dL Calcium 8.8 (8.4-10.2) mg/dL Total Bilirubin 0.9 (0.2-1.3) mg/dL AST 26 (14-36) IU/L ALT 16 (<35) IU/L Alkaline Phosphatase 44 (38-126) U/L Total Protein 7.7 (6.3-8.2) g/dL Albumin 4.6 (3.5-5.0) g/dL Globulin 3.1 (1.7-4.1) g/dL Albumin/Globulin Ratio 1.5 (1.0-2.8) Discharge Plan Departure Patient Disposition: Home Clinical Impression: Iron deficiency anemia Qualifiers: Iron deficiency anemia type: unspecified iron deficiency Qualified Code(s): D50.9 - Iron deficiency anemia, unspecified Instructions: DI for Iron Deficiency Anemia-Adult Activity Restrictions/Additional Instructions: Dear Ms. Baires, Thank you for coming to the emergency department. Today you were evaluated for feeling woozy, and your labs revealed iron deficiency anemia with a hemoglobin of 8.9. At this time you do not require emergent blood transfusion however it is important to follow up with your primary care doctor to have iron infusions or other treatment set up. In the meantime, I have prescribed you oral iron supplement that you can take once a day or once every other day with orange juice. Please be aware that iron can cause constipation, abnormally colored stools. You may also take ibuprofen every 6-8 hours to help with menstrual bleeding. It is possible that your anemia is due to dietary reasons in addition to your menstrual bleeding. Please return to the emergency department if you develop any new or worsening symptoms, heavy menstrual bleeding soaking a pad every hour or less, difficulty breathing or any other concerns. Please follow up with your primary care doctor within the next 2-3 days for ER follow-up. (If you do not have a PCP you can call [phone]. ?to schedule an appointment with an [facility] Primary Care Provider) IF YOU DEVELOP ANY NEW OR WORSENING SYMPTOMS, RETURN TO THE ER! Please read the attached instructions, they highlight more specific treatments and interventions for you at home. Thank you for letting me participate in your care, Margy Ma PA-C Prescriptions: New ferrous sulfate 325 mg (65 mg iron) tablet 325 mg PO DAILY Qty: 90 0RF Rx Instructions: Take with orange juice. No Action acyclovir 400 mg tablet 400 mg PO TID Qty: 10 6RF Referrals: Anali Prado MD [Primary Care Provider, [facility]] Stand Alone Forms: Patient Portal/API ED Sign-out <Karina Gómez DO - Last Filed: 01/12/25 18:43> Cosign ED Attending Chandu Attestation: I was immediately available in the department for consultation.
--- NOTE | 2025-01-10 16:56 | PC.NURSE ---
Pt assessed and cleared for discharge by provider
== END 2025-01-10 16:41 | disposition home or self-care (01) ==
PROVIDERS: Emergency Medicine; Emergency Provider Physician Assistant; PCP Student in an Organized Health Care Education/Training Program
DX: D50.9 Iron deficiency anemia, unspecified (principal)
CPT/HCPCS: 80053; 85025; 99281; 99283

== ENCOUNTER → 2025-01-15 08:38 | Outpatient (CLI) | payer BC, SELFPAY ==
[2025-01-15 09:09] LABS: Add Manual Diff / Slide Review NO; Hematocrit 30.0 % (36-46); Hemoglobin 9.7 g/dL (12.0-16.0); Lymphocytes Absolute Auto 1700 /uL (1100-4500); Mean Corpuscular HGB Conc 32.2 % (30-36); Mean Corpuscular Hemoglobin 23.7 PG (26-34); Mean Corpuscular Volume 73.6 fL (80-100); Platelet Count 284 X10^3/uL (150-400)
[2025-01-15 09:32] LABS: Cholesterol 204 mg/dL (140-199); HDL Cholesterol 66 mg/dL (40-60); Triglycerides 147 mg/dL (35-150)
== END ==
PROVIDERS: PCP Student in an Organized Health Care Education/Training Program; Referring Provider Family Medicine; Visit Provider Family Medicine
DX: D50.9 Iron deficiency anemia, unspecified (principal); D64.9 Anemia, unspecified; Z13.220 Encounter for screening for lipoid disorders
CPT/HCPCS: 36415; 80061; 85025

== ENCOUNTER → 2025-01-18 07:42 | Outpatient (CLI) | payer BC, SELFPAY ==
--- NOTE | 2025-01-18 07:43 | DI.US.S_ITS ---
PROCEDURE: US PELVIC COMPLETE INDICATIONS: IRREGULAR HEAVY MENSES TECHNIQUE: Real-time scanning was performed of the pelvic organs, with image documentation. Additional endovaginal scanning was necessary due to incomplete visualization of the adnexal and endometrial structures by transabdominal scanning. COMPARISON: [facility], , US PELVIC COMPLETE, 08/22/2021, 13:12. FINDINGS: Uterus: Uterus is anteverted and increased in size at 12.3 x 7.3 x 6.5 cm. The myometrium is heterogeneous with possible venetian blind appearance. The endometrium measures 17.6 mm combined thickness. Endometrium is heterogeneous. Ovaries: The right ovary measures 3.8 x 2.1 x 2.5 cm, with a calculated ovarian volume of 10.4 cc. Complex right ovarian cyst measuring 1.4 cm. The left ovary measures 2.6 x 2.2 x 1.2 cm, with a calculated ovarian volume of 3.6 cc. Less than 12 follicles can be seen in each ovary. No adnexal masses are seen. Other: No pathologic free abdominal or pelvic fluid. Postvoid residual volume of 111 cc. IMPRESSION: Enlarged heterogeneous uterus with a possible venetian blind appearance, may represent adenomyosis. Endometrium is upper limits of normal for premenopausal female measuring 17.6 mm. Recommend follow-up ultrasound. Complex right ovarian cyst measuring 1.4 cm, may represent a hemorrhagic cyst. Incidental note of elevated postvoid residual volume of 111 cc, correlate for bladder outlet obstruction. We strive to produce accurate, complete, and clear reports of imaging services. To assist us in improving patient care, this report was composed using standard report templates and voice recognition software. Therefore, it may contain abnormal punctuation, insertions and/or omissions. Occasional wrong-word or sound-alike substitutions may occur. Though we review the report and make efforts to correct it, we do recommend that the report be read carefully in proper context to recognize any text inaccuracies. Dictated by: Yonatan Cosby M.D. on 01/18/2025 at 12:52 Approved by: Yonatan Cosby M.D. on 01/18/2025 at 12:59
== END ==
LOC: US 07:42
PROVIDERS: PCP Student in an Organized Health Care Education/Training Program; Referring Provider Family Medicine; Visit Provider Family Medicine
DX: N72 Inflammatory disease of cervix uteri (principal); N85.2 Hypertrophy of uterus; N83.291 Other ovarian cyst, right side
CPT/HCPCS: 76830; 76856

== ENCOUNTER → 2025-01-19 10:08 | Outpatient (CLI) | payer BC, SELFPAY | LOC: LAB 10:08 | PROVIDERS: PCP Student in an Organized Health Care Education/Training Program; Visit Provider Family Medicine | DX: R93.89 Abnormal findings on diagnostic imaging of other specified body structures (principal); D50.9 Iron deficiency anemia, unspecified; D50.8 Other iron deficiency anemias | CPT/HCPCS: 87086 ==

== ENCOUNTER 2025-01-26 13:16 | Day surgery (SDC) | payer BC, SELFPAY ==
--- NOTE | 2025-01-26 | PATH_ITS ---
[facility] Accession Number: [id number] No. of containers..01 Tissue . 01 Material submitted: . stomach - STOMACH, ANTRAL . 01 Clinical history: . R/O H.PYLORI . 01 Diagnosis: STOMACH, ANTRAL: Gastric mucosa with mild chronic inflammation. No Helicobacter organisms identified. No intestinal metaplasia, dysplasia, or malignancy identified. [facility] 02/06/2025 1357 Local . 01 Electronically signed: . Bhanu Scales MD, Pathologist NPI- [id number] . 01 Gross description: . ANTRAL: Received in formalin are 2 fragment(s) of cook, soft tissue measuring 0.1 x 0.1 x 0.1 cm to 0.3 x 0.3 x 0.3 cm submitted entirely in 1 cassette(s) /ELIAS 02/06/2025 [facility] Local . 01 Microscopic: . ANTRAL: An immunohistochemical stain was performed to evaluate for Helicobacter organisms and is negative. The control stains appropriately. * This test was developed and the performance characteristics were validated by [facility]. It has not been cleared or approved by the Food and Drug Administration. . 01 Pathologist provided ICD-10: K29.50 . 01 CPT . 499937, M30200 Specimen Comment: A courtesy copy of this report has been sent to [facility] Pathology Performed at: [address] [address], [place], [place] [id number] MD Bhanu Scales MD Phone: [phone]
[2025-01-26] MEDS: LACTATED RINGERS 1,000 ML 42 ML IV (13:39)
[2025-01-26 13:44] VITALS: BP 122/80; PULSE 73; RESP 20; TEMP 36.2; O2SAT 100
--- NOTE | 2025-01-26 14:40 | PM.HP.IH.1 ---
History of Present Illness History of Present Illness Date Patient Seen: 01/26/25 Time Patient Seen: 14:40 Chief complaint: [facility] Narrative: 49yo F, iron deficiency anemia, unclear etiology. Presents today for EGD/colonoscopy to evaluate for anemia. [facility] Surgical History [place] teeth removed Social History Smoking Status: Never smoker Meds Home Medications and Allergies Home Medications ?Medication ?Instructions ?Recorded ?Confirmed ?Type acyclovir 400 mg tablet 400 mg PO TID #10 tabs 11/13/24 01/15/25 Rx ferrous sulfate 325 mg (65 mg 325 mg PO DAILY #90 tabs 01/10/25 01/15/25 Rx iron) tablet Allergies Allergy/AdvReac Type Severity Reaction Status Date / Time No Known Drug Allergies Allergy Verified 01/26/25 13:38 Exam Vital Signs (past 8 hours): - 01/26/25 13:44 Temperature 97.1 F L Pulse Rate 73 Respiratory Rate 20 Blood Pressure 122/80 Pulse Oximetry 100 Oxygen Delivery Method Room Air Oxygen Delivery Method Room Air Const General: comfortable Orientation: alert and oriented x3 Eyes Conjunctivae: other (pale) Sclera: sclerae normal EOM: EOM intact bilaterally Neck Neck: normal visual inspection Resp Effort & Inspection: normal respiratory effort Auscultation: clear to auscultation bilaterally Cardio Rate: regular rate Rhythm: regular rhythm GI Palpation: soft (nontender) Extrem Other: Without pitting edema Assessment & Plan Assessment and plan (1) Anemia: Qualifiers: Anemia type: iron deficiency Iron deficiency anemia type: other iron deficiency Qualified Code(s): D50.8 - Other iron deficiency anemias Status: Acute Plan Iron deficiency anemia, unclear etiology. Plan EGD/colonoscopy with biopsy to evaluate for possible GI sources of anemia. Plan EGD/colonoscopy with biopsy. The risks, benefits and options regarding the procedure were explained to the patient in detail. Risk discussion included but not limited to: perforaiton, bleeding, missed lesions, unable to reach cecum. The patient was encouraged to ask questions and they were answered to their satisfaction. The patient understands and is agreeable to proceed. Time-Based Coding :: [TOTAL MINUTES] spent with patient and on the chart (including review of chart, obtaining history, exam, reviewing outside data, placing orders, documenting exam and treatment plan, and counseling patient) on [DATE]. PROFEE Passenger Relations Representative Document charge(s): Yes Charge Codes Initial inpatient/observation care: [id number]
[2025-01-26 15:28] VITALS: BP 110/59; PULSE 63; RESP 25; TEMP 36.4; O2SAT 99
[2025-01-26 15:30] VITALS: BP 108/55; PULSE 63; RESP 25; O2SAT 100
--- NOTE | 2025-01-26 15:32 | P.OP.EGD&C_ITS ---
Operative Date/Time/Diagnoses Date of procedure: 01/26/25 Time of procedure: 15:32 Pre-op diagnosis: Anemia, unclear etiology Post-op diagnosis: other (Mild antral gastritis, no clear endoscopic etiology of chronic blood loss from stomach or colon ) Procedure & Clinicians Study performed: EGD/colonosocpy with biopsy Same procedure(s) as scheduled: Yes Indications: 49yo F with iron deficiency anemia Surgeon: Davi Hardin Anesthesia Type: MAC +/- Procedure Notes SCOAP/Timeout: Performed Procedure in detail: EGD Informed consent was obtained. The procedure, its risks, benefits, and alternatives were discussed. The patient was placed in the left lateral decubitus position. After satisfactory sedation per anesthesia, the video endoscope was inserted into the oropharynx and guided under direct vision into the esophagus, stomach, and duodenum. The duodenal bulb and second portion were unremarkable. The scope was withdrawn to the stomach and retroflexed. There was no increased fluid, food or secretions in the upper gastrointestinal tract. There was very minimal, nonspecific, patchy antral erythema. Biopsies were obtained for Helicobacter pylori. No erosions or ulcers. The scope was withdrawn to the esophagus. The Z-line and gastroesophageal junction were located at about 40 cm. No Garza?s or esophagitis. The patient tolerated the procedure very w ell. The patient was then transferred to the recovery area in good condition. There were no apparent complications. Significant findings: Mild antral antritis that would not explain iron deficiency anemia Biopsies taken to r/o hpylori No obvious source for iron deficiency anemia in stomach or proximal duodenum Colonoscopy Patient placed in left lateral recumbent position. Time out was performed. Procedural sedation was administered by anesthesia. Examination began with a thorough inspection of the perianal area. There was no evidence of fissures, fistulae, external hemorrhoids or cutaneous malignancy. The colonoscope was then placed into the rectum and the lumen was insufflated with carbon dioxide. The scope was carefully advanced forward. Ultimately the cecum was intubated and confirmed by identification of the ileocecal valve, the appendiceal orifice and the confluence of the taenia. The scope was then slowly withdrawn examining the colon thoroughly in all directions. In the rectum, retroflexion of the scope was performed for inspection of the distal rectum and anal canal. ?The colonoscopy was notable for the following: ?1. Quality of the preparation-good, [place] 2-3 ?2. No polyps, masses or significnat lesions 3. No obvious source for iron deficiency anemia in colon Scope withdrawal time: 6 Findings: gastritis (mild antral gastritis) Specimen(s): other (antral biopsies to r/o hpylori) Complications: none Impression: Mild antritis No obvious source of anemia in stomach and colon Post-procedure Recommendations: Colonscopy in 10 years Plan for aftercare: PACU, then home Will call with biopsy results re hpylori No obvious etiology of iron deficiency anemia Follow up: as needed Disposition: PACU
[2025-01-26 15:35] VITALS: BP 106/62; PULSE 64; RESP 18; O2SAT 100
[2025-01-26 15:40] VITALS: BP 107/64; PULSE 62; RESP 39; O2SAT 100
[2025-01-26 15:45] VITALS: BP 123/71; PULSE 58; RESP 16; TEMP 36.5; O2SAT 100
[2025-01-26] MEDS: CALCIUM CARBONATE 500 MG TAB PO (15:54)
== END 2025-01-26 16:09 | disposition home or self-care (01) ==
PROVIDERS: Family Provider Student in an Organized Health Care Education/Training Program; PCP Student in an Organized Health Care Education/Training Program; Referring Provider Surgery; Visit Provider Surgery
PROC: 0DJ08ZZ Inspection of Upper Intestinal Tract, Via Natural or Artificial Opening Endoscopic (ICD-10-PCS; CPT 43239; principal; 2025-01-26 14:15)
PROC: 0DJD8ZZ Inspection of Lower Intestinal Tract, Via Natural or Artificial Opening Endoscopic (ICD-10-PCS; CPT 45378; 2025-01-26 14:15)
DX: D50.8 Other iron deficiency anemias (principal); K29.50 Unspecified chronic gastritis without bleeding
CPT/HCPCS: 43239; 45378; J2704

== ENCOUNTER → 2025-03-23 07:18 | Outpatient (CLI) | payer BC, SELFPAY ==
[2025-03-23 08:37] LABS: Add Manual Diff / Slide Review NO; Hematocrit 37.2 % (36-46); Hemoglobin 12.3 g/dL (12.0-16.0); Lymphocytes Absolute Auto 1300 /uL (1100-4500); Mean Corpuscular HGB Conc 33.2 % (30-36); Mean Corpuscular Hemoglobin 27.8 PG (26-34); Mean Corpuscular Volume 83.8 fL (80-100); Platelet Count 230 X10^3/uL (150-400)
[2025-03-23 09:09] LABS: HEMOLYSIS < 15 (0-50); Iron 102 ug/dL (37-170)
[2025-03-23 09:21] LABS: Transferrin 281 mg/dL (206-381)
[2025-03-23 09:22] LABS: Percent Iron Saturation 31 % (15-50); Total Iron Binding Capacity 324 ug/dL (265-497)
[2025-03-23 09:45] LABS: Ferritin 43 ng/mL (11-264)
[2025-03-23 10:24] LABS: Poikilocytosis 1+; Tear Drop Cells 1+
== END ==
PROVIDERS: Family Provider Student in an Organized Health Care Education/Training Program; PCP Student in an Organized Health Care Education/Training Program; Referring Provider Student in an Organized Health Care Education/Training Program; Visit Provider Student in an Organized Health Care Education/Training Program
DX: D50.8 Other iron deficiency anemias (principal); R42 Dizziness and giddiness; Z12.4 Encounter for screening for malignant neoplasm of cervix
CPT/HCPCS: 36415; 82728; 83540; 83550; 85025

== ENCOUNTER → 2025-04-06 07:26 | Outpatient (CLI) | payer BC, SELFPAY ==
[2025-04-06 08:18] LABS: Add Manual Diff / Slide Review NO; Hematocrit 37.7 % (36-46); Hemoglobin 12.8 g/dL (12.0-16.0); Lymphocytes Absolute Auto 1600 /uL (1100-4500); Mean Corpuscular HGB Conc 33.9 % (30-36); Mean Corpuscular Hemoglobin 28.4 PG (26-34); Mean Corpuscular Volume 83.6 fL (80-100); Platelet Count 206 X10^3/uL (150-400)
[2025-04-06 08:49] LABS: HEMOLYSIS < 15 (0-50); Iron 143 ug/dL (37-170)
[2025-04-06 09:00] LABS: Percent Iron Saturation 42 % (15-50); Total Iron Binding Capacity 342 ug/dL (265-497); Transferrin 302 mg/dL (206-381)
[2025-04-06 09:24] LABS: Ferritin 43 ng/mL (11-264)
[2025-04-06 10:21] LABS: Anisocytosis 1+; Poikilocytosis 1+
== END ==
PROVIDERS: Family Provider Student in an Organized Health Care Education/Training Program; PCP Student in an Organized Health Care Education/Training Program; Referring Provider Student in an Organized Health Care Education/Training Program; Visit Provider Student in an Organized Health Care Education/Training Program
DX: D50.8 Other iron deficiency anemias (principal)
CPT/HCPCS: 36415; 82728; 83540; 83550; 85025

== ENCOUNTER → 2025-04-30 14:08 | Outpatient (CLI) | payer BC, SELFPAY ==
[2025-04-30 15:53] LABS: HEMOLYSIS 23 (0-50); Iron 126 ug/dL (37-170)
[2025-04-30 16:06] LABS: Percent Iron Saturation 38 % (15-50); Total Iron Binding Capacity 333 ug/dL (265-497); Transferrin 296 mg/dL (206-381)
[2025-04-30 16:28] LABS: Ferritin 33 ng/mL (11-264)
== END ==
PROVIDERS: Family Provider Student in an Organized Health Care Education/Training Program; PCP Student in an Organized Health Care Education/Training Program; Referring Provider Student in an Organized Health Care Education/Training Program; Visit Provider Student in an Organized Health Care Education/Training Program
DX: D50.8 Other iron deficiency anemias (principal)
CPT/HCPCS: 36415; 82728; 83540; 83550

== ENCOUNTER → 2025-05-14 07:42 | Outpatient (CLI) | payer BC, SELFPAY ==
--- NOTE | 2025-05-14 08:19 | DI.MRI.S_ITS ---
PROCEDURE: MR PELVIS WO/W CON INDICATIONS: Adenomyosis of the uterus TECHNIQUE: Coronal HASTE, sagittal breath-hold T2 FSE; axial T1 FSE with and without fat saturation through the pelvis. Optional long- and short-axis uterine nonbreath-hold T2 FSE through the uterus. Sagittal or axial dynamic VIBE during administration of contrast. Post-contrast axial or coronal VIBE/2-D FLASH with fat saturation from the iliac crests to the symphysis. Optional diffusion weighted imaging and ADC may be performed. COMPARISON: [facility], , US PELVIC COMPLETE, 04/30/2019, 16:41. [facility], , US PELVIC COMPLETE, 08/22/2021, 13:12. [facility], , US PELVIC COMPLETE, 01/18/2025, 8:06. FINDINGS: Image quality: Good. Uterus: Uterus is anteverted and has a globular appearance. The uterus measures 11.1 x 7.6 x 6.7 cm. Endometrium measures 11 mm, homogeneous. Small nabothian cysts. Junctional zone measures approximately 14 mm and is mildly thickened. The myometrium is diffusely heterogeneous. Heterogeneous enhancement. No uterine fibroids identified. Small T2 hyperintense cyst in the region of the right labia/lower vagina measuring 1.2 cm, (3/13). Likely a small Bartholin gland cyst. Adnexa: Left ovarian T2 hyperintense cyst or dominant follicle measuring 1.4 cm, (4/10). Left ovarian intrinsic T1 hyperintense cyst measuring 1.2 cm, (7/12). Corresponding T2 hyperintense signal. Round shape. No significant cysts on the right. Urinary system: Bladder wall is normal in thickness. Distal ureters are non distended. Urethra appears normal in morphology. Nodes and vessels: No pelvic or inguinal adenopathy by size criteria. Iliac vessels are normal in size. Somewhat prominent pelvic veins. Bowel and peritoneum: Trace free fluid in the right pelvis. Inferior colon and small bowel loops are normal in caliber. Soft tissues: No inguinal hernias. No findings of pelvic floor incompetence in the absence of provocation. Bones: Marrow demonstrates normal overall signal. IMPRESSION: 1. Myometrial junctional zone is mildly thickened. Uterus has a globular heterogeneous appearance. Findings most consistent with uterine adenomyosis. 2. Endometrium measures 11 mm. 3. Left ovarian intrinsic T1 hyperintense cyst measuring 1.2 cm. This could represent a small hemorrhagic/proteinaceous cyst. Difficult to exclude small endometrioma. 4. Small right labial/lower vagina cyst measuring 1.2 cm. Likely a Bartholin gland cyst. Dictated by: Ned Chen M.D. on 05/14/2025 at 9:28 Approved by: Ned Chen M.D. on 05/14/2025 at 9:55
== END ==
LOC: MRI 07:42
PROVIDERS: Family Provider Student in an Organized Health Care Education/Training Program; PCP Student in an Organized Health Care Education/Training Program; Referring Provider Student in an Organized Health Care Education/Training Program; Visit Provider Student in an Organized Health Care Education/Training Program
DX: N80.03 Adenomyosis of the uterus (principal); N83.202 Unspecified ovarian cyst, left side; N89.8 Other specified noninflammatory disorders of vagina
CPT/HCPCS: 72197; A9579

== ENCOUNTER 2025-05-20 13:22 | Emergency (ER) | payer BC, SELFPAY ==
[2025-05-20 13:37] VITALS: BP 122/77; PULSE 74; RESP 16; TEMP 36.6; O2SAT 100; BMI 23.0
[2025-05-20 13:56] VITALS: BP 130/75; BP 145/69; BP 147/72; PULSE 71; PULSE 72; PULSE 84
--- NOTE | 2025-05-20 14:04 | EKG_ITS ---
Located Within [facility]
[2025-05-20 14:21] LABS: Add Manual Diff / Slide Review NO; Hematocrit 38.2 % (36-46); Hemoglobin 13.1 g/dL (12.0-16.0); Lymphocytes Absolute Auto 1600 /uL (1100-4500); Mean Corpuscular HGB Conc 34.2 % (30-36); Mean Corpuscular Hemoglobin 29.6 PG (26-34); Mean Corpuscular Volume 86.5 fL (80-100); Platelet Count 273 X10^3/uL (150-400)
[2025-05-20 14:34] LABS: PTT Partial Thromboplastin Tim 24 SECONDS (25.1-36.5)
[2025-05-20 14:35] LABS: Alanine Aminotransferase 28 IU/L (<35); Albumin 5.0 g/dL (3.5-5.0); Albumin Globulin Ratio 1.5 (1.0-2.8); Alkaline Phosphatase 42 U/L (38-126); Blood Urea Nitrogen 10 mg/dL (7-17); Calcium 9.3 mg/dL (8.4-10.2); Carbon Dioxide 28 mmol/L (22-32); Chloride 96 mmol/L (98-107); Creatine Kinase 43 U/L (30-135); Estimated Glomerular Filt Rate > 60 mL/min (>60); Globulin 3.4 g/dL (1.7-4.1); Glucose 101 mg/dL (70-99); HEMOLYSIS < 15 (0-50); Magnesium 2.1 mg/dL (1.6-2.3); Potassium 3.8 mmol/L (3.4-5.1); Sodium 134 mmol/L (137-145); Total Protein 8.4 g/dL (6.3-8.2)
[2025-05-20 14:47] LABS: Troponin I < 0.012 ng/mL (0.01-0.034)
[2025-05-20 15:13] VITALS: BP 101/77; PULSE 80; RESP 16; O2SAT 97
[2025-05-20 17:43] VITALS: BP 117/59; PULSE 70; RESP 16; O2SAT 99
--- NOTE | 2025-05-20 17:52 | ED_ITS ---
HPI - Recheck/Abnormal Lab/Rx
--- NOTE | 2025-05-20 17:52 | ED.RECABL ---
HPI - Recheck/Abnormal Lab/Rx General Chief Complaint: Recheck/Abnormal Lab/Rx Stated Complaint: WIC: Ongoing low iron; nausea; weak Time Seen by Provider: 05/20/25 17:08 Source: patient Mode of arrival: Ambulatory History of Present Illness HPI narrative: 49-year-old female with a past medical history of anemia presents with feeling like she has a bit of mental fog after getting her usual iron transfusion dose earlier in the week. She denies any other symptoms. She is curious to know if her iron levels are improving and normal as well as her hemoglobin and hematocrit. Related Data Previous Rx's ?Medication ?Instructions ?Recorded acyclovir 400 mg tablet 400 mg PO TID #10 tabs 11/13/24 tranexamic acid 650 mg tablet 1,300 mg (2 x 650 mg) PO TID 5 04/09/25 days #30 tabs ferrous sulfate 325 mg (65 mg 325 mg PO DAILY #90 tabs 05/18/25 iron) tablet Allergies Allergy/AdvReac Type Severity Reaction Status Date / Time No Known Drug Allergies Allergy Verified 05/15/25 15:46 Review of Systems Review of Systems ROS Unobtainable: All systems reviewed & are unremarkable except as noted in HPI and below Patient History Medical History (Updated 05/20/25 @ 18:01 by Donal Magaña MD) Iron deficiency anemia Herpes labialis (10/15/15) Adenomyosis of the uterus Surgical History Mccall teeth removed Exam Narrative Exam Narrative: General: Patient appears to be in no acute distress, acting appropriately Head: normocephalic, atraumatic, HEENT: Pupils equal round reactive, eyes tracking well, neck supple, no JVD Heart: regular rate and rhythm, no murmurs, rubs, or gallops heard Lungs: clear to auscultation, no adventitious sounds Abdomen: soft , nontender, nondistended, positive bowel sounds Neurological: no focal neurological signs, moving all extremities well, alert and oriented x3, Psych: good judgment ,good insight, mood is normal. Initial Vital Signs Initial Vital Signs: Vital Signs Temperature 97.8 F 05/20/25 13:37 Pulse Rate 74 05/20/25 13:37 Respiratory Rate 16 05/20/25 13:37 Blood Pressure 122/77 05/20/25 13:37 Pulse Oximetry 100 05/20/25 13:37 Oxygen Delivery Method Room Air 05/20/25 13:37 Course Orders Ordered: ED Orders 05/20/25 13:50 EKG-12 Lead Stat 05/20/25 13:51 Urinalysis and Microscopic Stat 05/20/25 14:12 Complete Blood Count AUTO DIFF Stat Comprehensive Metabolic Panel Stat Magnesium Stat PTT Partial Thromboplastin Juice Stat Troponin & CK Cardiac Panel Stat Vital Signs Vital signs: Vital Signs - 8 hr 05/20/25 13:37 05/20/25 13:56 05/20/25 15:13 Temperature 97.8 F Pulse Rate 74 80 Pulse Rate [Orthostatic Lying] 72 Pulse Rate [Orthostatic Sitting] 71 Pulse Rate [Orthostatic Standing] 84 Respiratory Rate 16 16 Blood Pressure 122/77 101/77 Blood Pressure [Orthostatic Lying] 147/72 H Blood Pressure [Orthostatic Sitting] 145/69 H Blood Pressure [Orthostatic Standing] 130/75 Pulse Oximetry 100 97 Oxygen Delivery Method Room Air 05/20/25 17:43 Temperature Pulse Rate 70 Pulse Rate [Orthostatic Lying] Pulse Rate [Orthostatic Sitting] Pulse Rate [Orthostatic Standing] Respiratory Rate 16 Blood Pressure 117/59 L Blood Pressure [Orthostatic Lying] Blood Pressure [Orthostatic Sitting] Blood Pressure [Orthostatic Standing] Pulse Oximetry 99 Oxygen Delivery Method Room Air MDM - Recheck/Abnormal Lab/Rx Lab Data 05/20/25 14:12 05/20/25 14:12 Labs: Lab Results 05/20/25 Range/Units 14:12 WBC 5.5 (4.5-11.0) X10^3/uL RBC 4.42 (4.0-5.2) X10^6/uL Hgb 13.1 (12.0-16.0) g/dL Hct 38.2 (36-46) % MCV 86.5 (80-100) fL MCH 29.6 (26-34) PG MCHC 34.2 (30-36) % RDW 13.8 (11.6-14.8) % Plt Count 273 (150-400) X10^3/uL Neut % (Auto) 61.4 (50-75) % Lymph % (Auto) 28.8 (25-40) % Morgan % (Auto) 7.7 (3-14) % Eos % (Auto) 1.4 L (2-4) % Baso % (Auto) 0.7 (0-2) % Neut # (Auto) 3400 (4542-8155) /uL Lymph # (Auto) 1600 (2644-5270) /uL Morgan # (Auto) 400 (0-900) /uL Eos # (Auto) 100 (0-450) /uL Baso # (Auto) 0 (0-100) /uL APTT 24 L (25.1-36.5) SECONDS Sodium 134 L (137-145) mmol/L Potassium 3.8 (3.4-5.1) mmol/L Chloride 96 L (98-107) mmol/L Carbon Dioxide 28 (22-32) mmol/L BUN 10 (7-17) mg/dL Creatinine 0.54 (0.52-1.04) mg/dL Estimated GFR > 60 (>60) mL/min BUN/Creatinine Ratio 18.5 (6-22) Glucose 101 H (70-99) mg/dL Calcium 9.3 (8.4-10.2) mg/dL Magnesium 2.1 (1.6-2.3) mg/dL Iron 159 (37-170) ug/dL TIBC 337 (265-497) ug/dL % Saturation 47 (15-50) % Transferrin 293 (206-381) mg/dL Total Bilirubin 1.5 H (0.2-1.3) mg/dL AST 30 (14-36) IU/L ALT 28 (<35) IU/L Alkaline Phosphatase 42 (38-126) U/L Total Creatine Kinase 43 (30-135) U/L Troponin I < 0.012 (0.01-0.034) ng/mL Total Protein 8.4 H (6.3-8.2) g/dL Albumin 5.0 (3.5-5.0) g/dL Globulin 3.4 (1.7-4.1) g/dL Albumin/Globulin Ratio 1.5 (1.0-2.8) MDM Narrative Medical decision making narrative: 49-year-old female with a history of iron deficiency anemia who presents with some mental fog after getting her iron infusion done earlier this week. Patient was reassured that her iron levels are normal as well as her hemoglobin and hematocrit. Patient advised to hold off on next infusion if she is still feeling not quite like her baseline. Follow up with PCP as planned. Come back sooner if symptoms worsen. Discharge Plan Departure Patient Disposition: Home Clinical Impression: Iron deficiency anemia Qualifiers: Iron deficiency anemia type: unspecified iron deficiency Qualified Code(s): D50.9 - Iron deficiency anemia, unspecified Instructions: DI for Iron Deficiency Anemia-Adult Activity Restrictions/Additional Instructions: We will add on iron level to your labs. If iron levels are low, he will be contacted. If you are still not feeling back to baseline by the time is time for your transfusion, you may benefit from skipping your transfusion this time around. Follow up PCP as planned. Come back sooner if symptoms do not improve. Prescriptions: No Action acyclovir 400 mg tablet 400 mg PO TID Qty: 10 6RF ferrous sulfate 325 mg (65 mg iron) tablet 325 mg PO DAILY Qty: 90 0RF Rx Instructions: Take with orange juice. tranexamic acid 650 mg tablet 1,300 mg PO TID 5 Days Qty: 30 6RF Referrals: Anali Prado MD [Primary Care Provider, Family Practice] Stand Alone Forms: Patient Portal/API
[2025-05-20 18:12] LABS: HEMOLYSIS 95 (0-50); Iron 159 ug/dL (37-170)
[2025-05-20 18:20] LABS: Percent Iron Saturation 47 % (15-50); Total Iron Binding Capacity 337 ug/dL (265-497); Transferrin 293 mg/dL (206-381)
== END 2025-05-20 18:05 | disposition home or self-care (01) ==
PROVIDERS: Emergency Medicine; Emergency Provider Family Medicine; Family Provider Student in an Organized Health Care Education/Training Program; PCP Student in an Organized Health Care Education/Training Program
DX: D50.9 Iron deficiency anemia, unspecified (principal)
CPT/HCPCS: 36415; 80053; 82550; 83540; 83550; 83735; 84484; 85025; 85730; 93005; 99281; 99284

== ENCOUNTER → 2025-06-12 14:31 | Outpatient (CLI) | payer BC, SELFPAY ==
[2025-06-12 15:30] LABS: Add Manual Diff / Slide Review NO; Hematocrit 35.3 % (36-46); Hemoglobin 12.2 g/dL (12.0-16.0); Lymphocytes Absolute Auto 1600 /uL (1100-4500); Mean Corpuscular HGB Conc 34.4 % (30-36); Mean Corpuscular Hemoglobin 30.5 PG (26-34); Mean Corpuscular Volume 88.7 fL (80-100); Platelet Count 259 X10^3/uL (150-400)
[2025-06-12 15:59] LABS: HEMOLYSIS 16 (0-50); Iron 85 ug/dL (37-170)
[2025-06-12 16:11] LABS: Percent Iron Saturation 27 % (15-50); Total Iron Binding Capacity 310 ug/dL (265-497); Transferrin 264 mg/dL (206-381)
[2025-06-12 16:35] LABS: Ferritin 77 ng/mL (11-264)
== END ==
PROVIDERS: Family Provider Student in an Organized Health Care Education/Training Program; PCP Student in an Organized Health Care Education/Training Program; Referring Provider Student in an Organized Health Care Education/Training Program; Visit Provider Student in an Organized Health Care Education/Training Program
DX: D50.9 Iron deficiency anemia, unspecified (principal)
CPT/HCPCS: 36415; 82728; 83540; 83550; 85025

== ENCOUNTER 2025-07-09 10:57 | Day surgery (SDC) | payer BC, SELFPAY ==
[2025-06-27 14:55] VITALS: BMI 23.0
[2025-07-09] VITALS (16 sets, daily range): BP systolic 110–127; BP diastolic 53–80; PULSE 67–87; RESP 14–22; TEMP 36.6–37.5; O2SAT 98–100; BMI 23.7
--- NOTE | 2025-07-09 | PATH_ITS ---
[facility] Accession Number: [id number] No. of containers..01 Tissue . 01 Material submitted: . uterus - UTERUS, CERVIX, BILATERAL FALLOPIAN TUBES . 01 Diagnosis: UTERUS, CERVIX, AND BILATERAL FALLOPIAN TUBES, HYSTERECTOMY AND BILATERAL SALPINGECTOMY: Cervix: Histologically unremarkable. Endometrium: Inactive endometrium; no evidence of disordered proliferative endometrium on tax representative sections. Myometrium: Rare leiomyomas (up to 0.6 cm); no evidence of adenomyosis on tax representative sections. Bilateral fimbriated fallopian tubes: Histologically unremarkable. Negative for malignancy. [facility] 07/11/2025 1552 Local . 01 Electronically signed: . Shara Zhang DO, Pathologist NPI- [id number] . 01 Gross description: . Received in formalin with two patient identifiers and cervix, uterus, bilateral tubes, is a uterus with attached cervix and attached bilateral fallopian tubes. The uterus and cervix are 221 grams, 11.5 cm cervix to fundus, 7.2 cm cornu to cornu, and 6.8 cm anterior to posterior. . The serosa is red-brown and predominantly smooth with focal hemorrhage. The cervix is 2.8 cm in length by 3 cm diameter with cook, smooth ectocervical mucosa. The endometrium is red-cook, mildly hemorrhagic, smooth and 0.1 cm thick. The myometrium is pink-cook, densely trabeculated, and whorled up to 3.1 cm thick. There are three 0.3 to 0.6 cm white, whorled, intramural nodules with no gross evidence of hemorrhage or necrosis. . The right fallopian tube is 6 cm long by 0.5 cm in diameter. The left fallopian tube is 5.5 cm long by 0.5 cm in diameter. The cut surfaces are cook with poinpoint lumens. . Tooth Cutter Clutch sections are submitted as follows: A1: Anterior and posterior cervix. A2: Anterior endomyometrium with myometrial nodules. A3: Posterior endomyometrium with myometrial nodules. A4: Right fallopian tube with entire bisected fimbriae. A5: Left fallopian tube with entire bisected fimbriae. ([id number]) /[place] 07/10/2025 0905 Local . 01 Pathologist provided ICD-10: N80.03 . 01 CPT . 728136 Specimen Comment: A courtesy copy of this report has been sent to [facility] Pathology Performed at: [address] [facility] [address] [address], [place], [place] [id number] MD Bhanu Scales MD Phone: [phone]
[2025-07-09] MEDS: SCOPOLAMINE 1 PATCH TOP (11:19)
[2025-07-09] MEDS: ACETAMINOPHEN 325 MG TABLET 975 MG PO (11:20)
[2025-07-09] MEDS: LACTATED RINGERS 1,000 ML 42 ML IV ×2 (11:22→14:31)
[2025-07-09 11:45] LABS: Hematocrit 37.1 % (36-46); Hemoglobin 12.7 g/dL (12.0-16.0)
--- NOTE | 2025-07-09 12:34 | PM.PREOP ---
Pre-operative Note Interval Note History & Physical reviewed/Exam performed by Physician: Yes Changes to H&P: No H&P completed within 30 days and has changed as indicated here:: see H&P from 06/18/25
--- NOTE | 2025-07-09 13:16 | SUR.OPER ---
Lithotomy on padded OR bed. [place] Pad Positioner under torso. Head on pillow, arms padded and tucked at sides. Purple safety strap to torso. IV sites padded. Legs secured in padded yellow fins stirrups.
--- NOTE | 2025-07-09 15:16 | PM.OP.1 ---
Operative Date/Time/Diagnoses Date of procedure: 07/09/25 Time of procedure: 13:00 Pre-op diagnosis: 1. Abnormal uterine bleeding- suspected adenomyosis 2. Iron deficiency anemia Post-op diagnosis: same Procedure & Clinicians Procedure: Robotic-assisted total laparoscopic hysterectomy Bilateral salpingectomy Same procedure(s) as scheduled: Yes Indications: 49yo F with suspected adenomyosis and anemia, desiring definitive management, thus she was counseled and consented for the above procedures. Surgeon: Gloria Martinez Assisted?: No Anesthesia Type: General Operative Notes Findings: Enlarged 10wk sized globular uterus. Normal appearing bilateral fallopian tubes and bilateral ovaries. Normal appearing anterior and posterior cul-de-sacs, and normal appearing pelvic peritoneum. Specimen(s): other (uterus, cervix, bilateral fallopian tubes) Applied: catheter (removed at the end of the case) Estimated Blood Loss (mL): 100 Blood products transfused: none Procedure in detail: The risks, benefits, indications and alternatives of the procedure were reviewed with the patient and informed consent was obtained. The patient was taken to the operating room where general anesthesia was obtained without difficulty. She was then placed in the low lithotomy position using Parminder Stirrups and arms were tucked with padding. SCDs were placed bilaterally for VTE prophylaxis. She was then prepped and draped in the sterile fashion. She received 2g Ancef for surgical prophylaxis. A higgins catheter was then placed, and a sterile speculum was placed in the patient's vagina and the cervix was visualized. A V-care uterine manipulator was then placed. Attention was then turned to the patient?s abdomen where an 8mm skin incision was made in the superior aspect of the umbilicus after injection of 0.25% marcaine. An 8mm trocar and sleeve were then carefully introduced into the peritoneal cavity under direct visualization at a 90-degree angle while tenting up the abdominal wall. Intra-peritoneal placement was confirmed under direct visualization with the laparoscope with entry pressure <5 mm Hg. A pneumoperitoneum was obtained with several liters of CO2 gas, maximum pressure of 15 mmHg. Upon entry into the peritoneal cavity, structures immediately below the incision were inspected and found to be free of injury. Survey of abdomen and pelvis notable for above findings. Four additional ports were placed under visualization after injection of 0.25% marcaine, two on the left side of the abdomen and two on the right in a linear fashion with the umbilical incision. No intra-abdominal adhesions were noted. The DaVinci robot was then docked, with the vessel sealer and monopolar isa available as energy sources. Stabilizing the uterus, the vessel sealer and monopolar scissors were used to transect the left fallopian tube in a serial fashion from the ovary along the mesosalpinx. The left round ligament was then clamped, cauterized, and ligated. The left utero-ovarian ligament was then clamped, cauterized, and ligated. The anterior broad ligament was then incised to create a bladder flap. Attention was then turned to the right side of the uterus. In a similar manner, the right fallopian tube was transected from the mesosalpinx and the right round ligament and utero-ovarian ligament were clamped, cauterized, then ligated. The anterior broad ligament was incised along the bladder reflection, connected with the prior incision created from the left side. This was bluntly and sharply dissected off the lower uterine segment and cervix until endopelvic fascia was visualized. The uterine vessels bilaterally were then identified, skeletonized, cauterized, and then ligated. The colpotomy was then made circumferentially using the monopolar scissors. The entire cervix and uterus were then successfully amputated from the vagina. The uterus, cervix, and bilateral fallopian tubes were then removed through the vagina. The vagina was occluded with a glove to maintain pneumoperitoneum. The vaginal cuff was then closed with 0-Stratafix barbed suture in a running fashion. The pelvis was irrigated and found to to be hemostatic. The pneumoperitoneum was then released and the remaining ports were removed. The skin incisions were then re-approximated using 4-0 monocryl suture in a subcuticular fashion. At the completion of the case, all instruments were removed from the vagina, and the higgins catheter was removed. The sponge and needle counts were correct x 2. The patient was taken to the PACU in stable condition. Complications: none Post-operative Condition: stable Disposition: PACU Plan for aftercare: Discharge home in the morning.
[2025-07-09] MEDS: BENZOCAINE/MENTHOL 1 LOZ PKT 1 EACH PO (15:59)
[2025-07-09] MEDS: ONDANSETRON 4 MG/2 ML INJ IV (17:31)
[2025-07-09] MEDS: ACETAMINOPHEN 325 MG TABLET 650 MG PO (17:31)
--- NOTE | 2025-07-09 17:39 | PC.NURSE ---
1730 X1 tylenol dropped on floor,pulled new one from pyxis for pt
[2025-07-09] MEDS: KETOROLAC 30 MG/ML VIAL IV (20:09)
[2025-07-10] MEDS: ONDANSETRON 4 MG/2 ML INJ IV (00:27)
[2025-07-10] MEDS: ACETAMINOPHEN 325 MG TABLET 650 MG PO ×2 (00:27→06:44)
[2025-07-10] MEDS: KETOROLAC 30 MG/ML VIAL IV ×2 (04:25→09:04)
--- NOTE | 2025-07-10 06:21 | PC.NURSE ---
Pt POD 1 from hysterectomy/BL salpingectomy. Early in shift, pt experienced nausea w/o vomiting, which was mitigated by application of scopolamine patch in addition to IV zofran as ordered. Pt currently tolerating PO intake w/o nausea. Pain well controlled with current regimen. Pt ambulated to the bathroom multiples tomes, standby assist, voiding without difficulty. Scant spotting observed on vannesa-pad.? Noted to be mildly anxious regarding postoperative sensations, pain and potential complications; asked multiple questions but was easily reassured with education and explanation. Resting comfortable at the of shift, vital signs stable, and no acute concerns noted.
[2025-07-10 08:16] VITALS: BP 125/63; PULSE 62; RESP 16; TEMP 36.9; O2SAT 100
--- NOTE | 2025-07-10 09:57 | PM.DS.IH.1 ---
History of Present Illness History of Present Illness Date Patient Seen: 07/10/25 Time Patient Seen: 09:57 Chief complaint: hysterectomy Discharge Providers Provider Discharge Date: 07/10/25 Primary care physician: Anali Prado MD Discharge provider: Gloria Martinez DO Summary Hospital Course Discharge Diagnosis: Abnormal uterine bleeding, suspected adenomyosis Iron deficiency anemia Hospital Course: 49yo F admitted for same day surgery to undergo robotic-assisted total laparoscopic hysterectomy with bilateral salpingectomy. Her procedure was uncomplicated, and by post-op day 1, she was ambulating, tolerating regular diet, voiding spontaneously, with minimal vaginal bleeding. Thus she was discharged to home on post-op day 1. Status at Discharge Cognitive/behavioral status at discharge: oriented Functional status at discharge: independent ambulation Overall status at discharge: patient is progressing back to baseline Time Spent with Patient Time spent: Less than 30 minutes Exam Vital Signs (past 8 hours): - 07/10/25 08:16 Temperature 98.5 F Pulse Rate 62 Respiratory Rate 16 Blood Pressure 125/63 Pulse Oximetry 100 Oxygen Flow Rate 0 Oxygen Delivery Method Room Air Oxygen Flow Rate 0 Const General: healthy appearing, comfortable and No acute distress Resp Effort & Inspection: normal respiratory effort and able to speak in complete sentences GI Other: soft, appropriately tender, mildly distended due to laparoscopic surgery Skin Other: 5 laparoscopic incisions clean/dry/intact with dermabond in place Neuro Cognition: normal cognition Speech: speech normal Extrem General: normal to inspection and no calf tenderness Psych Mood: congruent mood Affect: normal affect Objective Labs 07/09/25 11:35 Labs: Laboratory Results - last 24 hr 07/09/25 11:35 Hgb 12.7 Hct 37.1 PFSH Medical History (Updated 07/04/25 @ 11:56 by Alessio James MD) Iron deficiency anemia Herpes labialis (10/15/15) Adenomyosis of the uterus Surgical History (Updated 06/27/25 @ 15:10 by Natasha Noel RN) Hx of colonoscopy [place] teeth removed Social History household members: spouse and children Smoking Status: Former smoker alcohol intake: former Discharge Assessment & Plan Assessment and Plan Assessment: Status post robotic-assisted total laparoscopic hysterectomy with bilateral salpingectomy Plan of Treatment: Discharge to home with follow-up in clinic as scheduled Discharge Plan Discharge Plan Patient Disposition: Home Provider Discharge Comment: Take ibuprofen 800mg every 8hrs and acetaminophen 650mg every 6hrs for pain. Avoid lifting greater than 20lbs for at least 4wks. Do not place anything in the vagina for at least 6 weeks. Discharge orders & Medications Discharge Orders: Discharge (Order); Ordered 07/10/25 Ordered By: Gloria Martinez Prescriptions: Continued ferrous sulfate 325 mg (65 mg iron) tablet 325 mg PO DAILY Qty: 90 0RF Rx Instructions: Take with orange juice. Follow up/Referrals: Gloria Martinez DO [Physician, [employer]ER] Diet/Activity/Treatments Diet: Diet as Tolerated Activity: Ambulate as tolerated. Skin/Wound/Dressing Care Skin care: You may shower normally. Report to your healthcare provider any signs of infection, such as:: chills, fever, increased pain, unusual drainage and unusual redness Dressing: The surgical glue on your incisions will peel off after about 1 week. Visit Report/Discharge Packet Instructions: DI for Hysterectomy, DI for Laparoscopy Stand Alone Forms: Patient Portal/API Print Language: Serbian Discharge Data Primary Care Provider: Anali Prado Attending Provider: Gloria Martinez Quality VTE Deep Vein Thrombosis/Pulmonary Embolism Present on Admission: No IH PROFEE Charge Codes Discharge inpatient/observation: [id number]
--- NOTE | 2025-07-10 11:10 | PC.NURSE ---
Discharge note: Up OOB, ambulating, voiding and tolerating diet. Discharge instructions given to patient and spouse, discussed importance of F/U with Dr. Martinez, weight and activity restrictions. Discussed importance of signs of worsening symptoms. Both verbalized understanding of instructions, home via private vehicle accompanied by spouse.
--- NOTE | 2025-07-10 11:24 | CM.DANOTE ---
DCP Assessment Note Brief pt is a 49yo F POD1 hysterectomy with Dr. Martinez. 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 works at the [employer]. per chart, ambulating, voiding, and otherwise indep in room. no needs identified at this time. P: dc home with spouse support and OP f/u. no identified barriers to safe dc home. will continue to follow as needed should any arise RENATO Israel Discharge Planning/Care Management CM Discharge Assessment Start: 07/09/25 16:29 Freq: Status: Discharge Protocol: Document 07/10/25 11:23 SL (Rec: 07/10/25 11:24 SL [id number]) Discharge Planning Assessment Assigned Discharge RENATO Moran Signal Helper Provider Anali Prado Insurance Other (enter in Comment) Insurance Comment Jenny Alcantar DPOA/Assigned Adelina, spouse Designee Name Contact Information [phone] Advance Directives? Yes Advance Directives Yes on File History Provided By Patient,Medical Record Prior Living House Arrangements Household Members spouse,children Type of Drives own vehicle transporation used prior to admit Independent with ADL Yes 's Is patient alert and Yes oriented? Referrals Initiated None needed Review Status In Process Please Provide Date 07/10/25 Initial DC Assessment Was Performed Next Review Type Continued Stay Review Pre-Anesthesia Assessment Start: 06/27/25 14:41 Freq: Status: Complete Protocol: Document 06/27/25 14:55 CAB (Rec: 06/27/25 15:10 CAB [id number]) Pre-Anesthesia Assessment Information obtained Chart review,Portal Questionnaire via Height 160.02 cm Weight 58.967 kg Body Mass Index (BMI 23.0 ) If yes, specialist Emergency seen Patient hospitalized Yes or treated in the ER in the last year? If yes, treated for ED @ 05/20/25 for anemia Patient experienced None in the last year Patient experienced Yes syncope or dizziness in the last year? If yes, please Dizziness due to low iron levels describe Does patient have None history of Has patient ever had No a blood clot? Is patient on No anticoagulant therapy? Does patient have a No environmental health technologist? Was cardiac testing No performed? Does patient have No history of a pacemaker/ICD? Cardiac Clearance Not Applicable Received Can patient climb a Yes flight of stairs without shortness of breath? Can patient walk Yes around the grocery store without shortness of breath? Does patient have None history of Has patient ever No been to ER/ hospitalized for asthma/COPD? Taken steroids for No asthma or COPD in the last year? Does patient use No oxygen at home? Does patient have No history of Sleep Apnea? Cough or cold No symptoms in the past two weeks? Does patient have No any memory problems? Does patient have None history of History of weakness, No paralysis, or other residual effects of stroke/TIA? Mobility device(s) None used Has patient fallen No within the past year ? Does patient have a No neurostimulator or pain stimulator? Does patient have No chronic pain? Does patient have No history of GERD? Special dietary No needs or difficulty swallowing? Does patient have No history of kidney/ liver problems/ disease? Does patient have No Diabetes? Insulin pump or No continuous glucose monitor? GLP-1? No Does patient have No history of thyroid problems? Is patient ? No Is patient No ? Does patient have No history of cancer? Alcohol intake 0 drinks per day Smoking status Never smoker Marijuana product No use? Other substance use None Does patient have Yes history of anesthesia reactions ? If yes, please I take longer than usual to wake up - or, I did after describe my colonoscopy and I did when I was younger with wisdom teeth Family history of No anesthesia reactions ? Patient/family No member history of Malignant Hyperthermia? Does patient have No history of a blood transfusion reaction ? Anesthesia Review No Requested Patient has Advanced No Directive and/or Power of Back Tender Paper Machine? Does patient have Yes assistance after surgery? Comment and family Who is driving Adelina ward home after surgery? Phone number [phone] Relationship to Spouse patient
== END 2025-07-10 11:12 | disposition home or self-care (01) ==
LOC: OR 10:59 → AC 16:28
PROVIDERS: Anesthesiology; Family Provider Student in an Organized Health Care Education/Training Program; PCP Student in an Organized Health Care Education/Training Program; Referring Provider Student in an Organized Health Care Education/Training Program; Visit Provider Student in an Organized Health Care Education/Training Program
PROC: 0UT94ZZ Resection of Uterus, Percutaneous Endoscopic Approach (ICD-10-PCS; CPT 58571; principal; 2025-07-09 13:00)
DX: N93.9 Abnormal uterine and vaginal bleeding, unspecified (principal); D50.9 Iron deficiency anemia, unspecified; Z87.891 Personal history of nicotine dependence; D25.9 Leiomyoma of uterus, unspecified
CPT/HCPCS: 58571; 81025; 85014; 85018; S2900; J0689; J1100; J1885; J2250; J2405; J2704; J3010; J3490; J7120